=== PATIENT | female | born 1975 | race Two or more races ===

== ENCOUNTER 2020-06-09 09:41 | Outpatient (REF) | payer OTHER, SELFPAY ==
--- NOTE | 2020-06-09 09:40 | EMG_ITS ---
Right median and ulnar motor and sensory studies were performed. Right radial sensory study was performed and paraspinal muscles were tested. IMPRESSION: [id number]-[id number] right median neuropathy across carpal tunnel. MD LUIS Min/DARSHAN / [id number]
== END 2020-06-09 09:42 | disposition home or self-care (01) ==
LOC: HO.NEURO 09:41
PROVIDERS: PCP Internal Medicine; Visit Provider Internal Medicine
DX: R20.0 Anesthesia of skin (principal)
CPT/HCPCS: 95860; 95886; 95909

== ENCOUNTER → 2020-09-30 09:05 | Outpatient (BNVA) | payer OTHER, SELFPAY | PROVIDERS: PCP Internal Medicine; Visit Provider Orthopaedic Surgery | DX: M25.461 Effusion, right knee (principal) | CPT/HCPCS: 99202 ==

== ENCOUNTER 2020-10-14 07:34 | Outpatient (REF) | payer OTHER, SELFPAY ==
--- NOTE | ~2020-10-14 | MR_ITS ---
EXAMINATION: MR KNEE WITHOUT CONTRAST, RIGHT CLINICAL INFORMATION: Effusion, right knee. COMPARISON: 05/21/2017 TECHNIQUE: MRI of the knee without contrast was performed using routine sequences on a high-field scanner. FINDINGS: MENISCI: Medial Meniscus: The posterior horn is torn at its root insertion, new as compared to prior. The meniscal body is partially extruded medially from the jointline. Lateral Meniscus: Undersurface fraying is present at the posterior horn near its root insertion. LIGAMENTS: Cruciate: Intact. Collateral: Intact. EXTENSOR MECHANISM: Intact. ARTICULAR CARTILAGE/BONE: Patellofemoral Compartment: Mild generalized nonuniform chondral thinning at the patella has progressed as compared to prior. There are nhtag-yk-fsiuvffp sized marginal osteophytes. More mild chondral thinning and surface irregularity are noted at the trochlea, as well, with small marginal osteophytes that have also progressed as compared to prior. Medial Compartment: Mild nonuniform chondral thinning and surface irregularity are present at the medial femoral condyle and medial tibial plateau. Ijsmp-yd-ptwyccfc sized marginal osteophytes. Subcortical cystic change at the posterior margin of the tibial plateau near the insertion of the posterior root insertion of the medial meniscus appears unchanged from prior and may correspond to an insertional, intraosseous ganglion cyst. New areas of subcortical edema signal are present at the anterior and posterior margins of the medial tibial plateau, likely reactive to the adjacent synovitis and corresponding to early erosions. There is increased cartilage loss at the superior margin of the posterior nonweightbearing facet of the medial femoral condyle over an area measuring 9 x 8 mm. Lateral Compartment: Kdjpe-ee-mvgnqdyl sized marginal osteophytes. There is mild nonuniform chondral thinning in the lateral compartment. Cartilage loss at the superior margin of the posterior nonweightbearing surface of the lateral femoral condyle has progressed as compared to prior with increased underlying marrow edema signal and cortical erosion/irregularity. Cortical cystic focus of the posterior margin of the lateral tibial plateau has increased in size as compared to prior. JOINT FLUID AND BURSAE: Diffuse synovitis at the right knee joint has progressed as compared to prior, occupying the recesses of the medial and lateral compartments as well as the intercondylar notch and the suprapatellar pouch. There are foci of low signal intensity within the synovium which likely correspond to hemosiderin deposition, most notable in the recesses of the suprapatellar pouch. Multiple lobular cystic foci are present at the posterior, medial, and lateral aspects of the joint, likely corresponding to synovial cysts with synovitis that decompresses from the joint itself. Low signal intensity material is present in the posterior aspect of the joint near the PCL. MR/MR knee RT wo con IMPRESSION: 1. Progression of the diffuse synovitis in the knee joint with areas of low signal intensity that are most concerning for hemosiderin deposition. These findings suggest a synovial process such as chronic hemarthroses (as with hemophilic arthropathy) or a diffuse form of pigmented villonodular synovitis. Amyloid arthropathy is on the differential, though less likely. Recommend correlation with possible history of underlying inflammatory arthropathy. 2. New posterior root avulsion of the medial meniscus. Undersurface fraying at the posterior horn of the lateral meniscus. 3. Progression of the mild tricompartmental arthrosis with new subtle marginal erosive changes.
== END 2020-10-14 07:35 | disposition home or self-care (01) ==
LOC: HO.MRI 07:34
PROVIDERS: Visit Provider Orthopaedic Surgery
DX: M25.461 Effusion, right knee (principal)
CPT/HCPCS: 73721

== ENCOUNTER → 2020-10-24 12:28 | Outpatient (BNVA) | payer OTHER, SELFPAY | PROVIDERS: PCP Internal Medicine; Visit Provider Orthopaedic Surgery | DX: Z13.89 Encounter for screening for other disorder (principal) | CPT/HCPCS: 99212 ==

== ENCOUNTER → 2020-12-01 14:17 | Outpatient (BNVA) | payer OTHER, SELFPAY | PROVIDERS: PCP Internal Medicine; Visit Provider Orthopaedic Surgery | DX: M12.261 Villonodular synovitis (pigmented), right knee (principal) | CPT/HCPCS: 99212 ==

== ENCOUNTER 2021-04-17 08:14 | Outpatient (REF) | payer OTHER, SELFPAY ==
[2021-04-17 09:08] LABS: MANUAL DIFF FLAG NO
[2021-04-17 09:18] LABS: Basophils Percent Auto 0.5 % (0-2); Eosinophils Absolute Auto 0.3 X10*3/uL (0.0-0.4); Eosinophils Percent Auto 2.9 % (0-4); Hemoglobin 11.4 g/dl (12.0-16.0); Imm Gran Abs Auto 0.03 X10*3/uL (0.00-0.03); Imm Gran Pct Auto 0.3 % (0.0-0.4); Lymphocytes Absolute Auto 2.9 X10*3/uL (1.2-4.9); Lymphocytes Percent Auto 33.9 % (20-40); Mean Corpuscular HGB Conc 29.2 g/dl (31.0-35.0); Mean Corpuscular Hemoglobin 20.5 pg (27.0-33.0); Mean Corpuscular Volume 70.3 fL (80-98); Mean Platelet Volume 10.8 fL (9.4-12.3); Monocytes Absolute Auto 0.5 X10*3/uL (0.1-1.2); Monocytes Percent Auto 5.9 % (2-11); Neutrophils Absolute Auto 4.9 X10*3/uL (2.0-8.3); Neutrophils Percent Auto 56.5 % (45-73); Platelet Count 344 X10*3/uL (160-400); Red Blood Count 5.55 X10*6/uL (4.20-5.50); Red Cell Distribution Width 17.8 % (11.0-16.0); White Blood Count 8.6 X10*3/uL (4.8-10.8)
[2021-04-17 10:29] LABS: Folate 12.5 ng/mL (> or = 4.0); Vitamin B12 309 pg/mL (200-900)
[2021-04-21 13:47] LABS: Vitamin D 25-OH, D2 <4 ng/mL; Vitamin D 25-OH, D3 27 ng/mL; Vitamin D 25-OH, Total 27 ng/mL (30-100)
== END 2021-04-17 08:15 | disposition home or self-care (01) ==
LOC: HO.LAB 08:14
PROVIDERS: PCP Internal Medicine; Visit Provider Internal Medicine
DX: E55.9 Vitamin D deficiency, unspecified (principal); D64.9 Anemia, unspecified; E53.8 Deficiency of other specified B group vitamins
CPT/HCPCS: 36415; 82306; 82607; 82746; 85025

== ENCOUNTER 2021-04-28 09:20 | Outpatient (REF) | payer OTHER, SELFPAY ==
--- NOTE | ~2021-04-28 | MR_ITS ---
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 COMPARISON: MRI dated 10/14/2020. TECHNIQUE: MRI of the knee was performed before and after the intravenous administration of 7.5 mL Gadavist on a high-field scanner. FINDINGS: MENISCI: Medial meniscus: The tear of the posterior horn of the root insertion is unchanged from prior. There is partial extrusion of the meniscal body Lateral meniscus: Undersurface fraying at the posterior horn is unchanged. LIGAMENTS: Cruciate: Intact. Collateral: Intact. EXTENSOR MECHANISM: Intact. ARTICULAR CARTILAGE/BONE: Patellofemoral compartment: There is oyvq-vl-uezplixy generalized nonuniform chondral thinning at the patella, more pronounced at the medial facet and median ridge, with associated full-thickness chondral fissuring. Additional nonuniform cartilage loss is present at the trochlea. These findings are nonspecific significant change from prior. Medial compartment: There is mild nonuniform articular cartilage loss at the medial femoral condyle and medial tibial plateau. Small marginal osteophytes. As seen on the prior study, there is focal high-grade cartilage loss at the superior aspect of the posterior non-weightbearing surface of the medial femoral condyle, unchanged from prior. The enhancing intraosseous cystic focus at the posterior aspect of the tibial plateau near the PCL insertion likely corresponds to a intraosseous ganglion cyst mild subcortical marrow edema signal is again seen at the posterior and medial margin of the tibial plateau and likely reactive to the adjacent synovitis. Early erosions are also possible. Overall, this appearance is not significantly change from prior Lateral compartment: Small to moderate-sized marginal osteophytes are again noted. There is minimal chondral thinning surface irregularity at the lateral compartment weightbearing surfaces. More focal high-grade cartilage loss is present at the superior aspect of the posterior non-weightbearing surface of the lateral femoral condyle with associated central osteophyte, unchanged from prior. Subcortical cystic change at the posterior margin of the lateral tibial plateau is unchanged. JOINT FLUID AND BURSAE: Diffuse, mildly enhancing synovitis at the right knee is not appreciably changed as compared to prior, occupying the suprapatellar pouch, medial and lateral recesses, intercondylar notch, and posterior recesses of the joint. Multiple ill-defined foci of low signal intensity are present within the synovitis in addition to peripheral rims of low signal intensity, favored to correspond to hemosiderin deposition. Additional lobular cystic foci are again seen in the proximal margins of the posterior and medial recesses, potentially corresponding to superimposed synovial cysts. An 8 mm low signal intensity nodular focus in the lateral recess medially tibial plateau is similar to prior. MR/MR knee RT wo/w con IMPRESSION: 1. No significant interval change in the diffuse tenosynovitis at the knee joint with areas of low signal intensity that are most concerning for hemosiderin deposition. This appearance is appropriate for a diffuse form of pigmented villonodular synovitis, though there are minimal if any erosive changes present and the degree of hemosiderin deposition is relatively mild. Alternative synovial pathologies are possible if this has not been previously biopsy-confirmed. 2. Unchanged posterior root avulsion of the medial meniscus and undersurface fraying of the posterior horn of the lateral meniscus. 3. Mild tricompartmental arthrosis, unchanged.
[2021-04-28 12:02] LABS: Alanine Aminotransferase 13 U/L (0-31); Alkaline Phosphatase 79 U/L (39-117); Aspartate Amino Transferase 17 U/L (5-31); Bilirubin Direct 0.3 mg/dL (0.0-0.5); Bilirubin Total 0.8 mg/dL (0.0-1.0); Total Protein 6.6 g/dL (6.5-8.0)
[2021-04-28 12:28] LABS: Folate 9.1 ng/mL (> or = 4.0); Vitamin B12 229 pg/mL (200-900)
[2021-05-03 14:46] LABS: Vitamin D 25-OH, D2 <4 ng/mL; Vitamin D 25-OH, D3 23 ng/mL; Vitamin D 25-OH, Total 23 ng/mL (30-100)
== END 2021-04-28 09:21 | disposition home or self-care (01) ==
LOC: HO.MRI 09:20
PROVIDERS: Absent Provider Internal Medicine; PCP Internal Medicine; Visit Provider Orthopaedic Surgery
DX: D48.1 Neoplasm of uncertain behavior of connective and other soft tissue (principal); E55.9 Vitamin D deficiency, unspecified; E53.8 Deficiency of other specified B group vitamins; R74.01 Elevation of levels of liver transaminase levels
CPT/HCPCS: 36415; 80076; 82306; 82607; 82746

== ENCOUNTER 2021-05-02 15:56 | Outpatient (REF) | payer OTHER, SELFPAY | END 2021-05-02 15:57 | disposition home or self-care (01) | LOC: HO.MRI 15:56 | PROVIDERS: Visit Provider Orthopaedic Surgery | DX: D48.1 Neoplasm of uncertain behavior of connective and other soft tissue (principal) | CPT/HCPCS: 73723; A9585 ==

== ENCOUNTER 2021-09-25 12:25 | Outpatient (REF) | payer OTHER, SELFPAY ==
[2021-09-25 13:47] LABS: Alanine Aminotransferase 12 U/L (0-31); Albumin Level 4.1 g/dL (3.5-5.0); Alkaline Phosphatase 83 U/L (39-117); Aspartate Amino Transferase 18 U/L (5-31); Bilirubin Direct 0.2 mg/dL (0.0-0.5); Bilirubin Total 0.5 mg/dL (0.0-1.0); Total Protein 7.1 g/dL (6.5-8.0)
[2021-09-25 14:42] LABS: Folate 12.2 ng/mL (> or = 4.0); Vitamin B12 223 pg/mL (200-900)
[2021-10-01 13:56] LABS: Vitamin D 25-OH, D2 <4 ng/mL; Vitamin D 25-OH, D3 14 ng/mL; Vitamin D 25-OH, Total 14 ng/mL (30-100)
== END 2021-09-25 12:26 | disposition home or self-care (01) ==
LOC: HO.LAB 12:25
PROVIDERS: PCP Internal Medicine; Visit Provider Internal Medicine
DX: E53.8 Deficiency of other specified B group vitamins (principal); E55.9 Vitamin D deficiency, unspecified; R74.01 Elevation of levels of liver transaminase levels
CPT/HCPCS: 36415; 80076; 82306; 82607; 82746

== ENCOUNTER 2021-10-20 10:25 | Outpatient (REF) | payer OTHER, SELFPAY ==
--- NOTE | ~2021-10-20 | MR_ITS ---
EXAMINATION: MR KNEE WITHOUT AND WITH CONTRAST, RIGHT CLINICAL INFORMATION: Right knee PVNS. COMPARISON: 05/02/2021 TECHNIQUE: MRI of the knee was performed before and after the intravenous administration of 8.5 mL Gadavist on a high-field scanner. FINDINGS: MENISCI: Medial meniscus: Again seen is a tear of the posterior horn at the root insertion with blunting of the free edge. Meniscal body is partially extruded. Anterior horn is diminutive. Lateral meniscus: A vertical tear of the anterior horn is more pronounced as compared to prior and extends about the femoral and tibial surfaces. There is free edge and undersurface fraying of the posterior horn root insertion which is similar to prior. LIGAMENTS: Cruciate: ACL is intact. There is increased intrasubstance signal in the PCL which may be due to mild mucoid degeneration. No appreciable tears. Collateral: The fibular collateral ligament is thickened and irregular proximally, potentially due to a ligament sprain. No discrete tears. The popliteus tendon is torn 1.5 cm from the origin with distal retraction of the muscle. EXTENSOR MECHANISM AND OTHER TENDONS/MUSCLES: There is thickening of the quadriceps and patellar tendons which may be due in part to prior surgery. Superimposed tendinosis is present at the patellar tendon. The lateral head of the gastrocnemius is completely torn at the femoral origin with distal retraction by 4.5 cm. The medial head of the gastrocnemius muscle is thickened and irregular proximally at its origin with associated edema signal, consistent with tendinosis and partial tearing. Punctate foci of susceptibility artifact are present in this region in addition to linear tracts of scar tissue extending to the skin surface, consistent with postsurgical changes. There is significant atrophy, edema signal, and fatty replacement of the lateral head of the gastrocnemius muscle proximally. ARTICULAR CARTILAGE/BONE: Patellofemoral compartment: Tfnh-yz-satzqyaj generalized non-uniform chondral thinning is again seen at the patella, more pronounced in the region of the medial facet. There is more mild non-uniform chondral thinning in the trochlea. Small marginal osteophytes. There is a thickened fold of scar tissue in the lateral aspect of the patellofemoral compartment. Medial compartment: There is pdpo-[id number] non-uniform chondral thinning at the weightbearing surfaces of the medial femoral condyle and medial tibial plateau with moderate size marginal osteophytes. Subchondral edema is present at the medial tibial plateau posteriorly. There is a 1 x 0.5 cm non-marginal osteophyte at the posterior non-weightbearing surface of the lateral femoral condyle superiorly. There is an unchanged 1.2 cm cystic focus within the posterior aspect of the tibial plateau deep to the insertion of the PCL, likely an intraosseous ganglion cyst. An erosion is possible. Lateral compartment: Small to moderate-sized marginal osteophytes. Moderate articular cartilage loss is present at the anterior weightbearing surface of the lateral femoral condyle with known marginal osteophytes over an area measuring 1 x 1.5 cm. Underlying marrow signal is edematous. Chondral fissuring and subcortical edema are present at the lateral tibial plateau anteriorly. There is mild non-uniform chondral thinning and surface irregularity at the remainder of the lateral tibial plateau and epicondyle. Subcortical cystic change is again seen at the posterior margin of the lateral tibial plateau. Articular cartilage loss is again noted at the posterior non-weightbearing surface of the femoral condyle with central osteophytes. JOINT FLUID AND BURSAE: Small to moderate-sized joint effusion. The diffuse synovitis within the joints is markedly improved as compared to prior, most consistent with postsurgical changes of cystectomy. Residual or recurrent foci of synovitis are present in the anterior recess of the medial compartment, the lateral recesses of the lateral compartment, and within a synovial cyst just superficial to the MCL. This medial synovial cyst is filled with heterogeneous synovitis and measures 3.4 x 1 x 4.0 cm (AP by transverse by craniocaudal). MR/MR knee RT wo/w con IMPRESSION: 1. Status post synovectomy with significant reduction in the burden of PVNS at the knee joint. Residual/recurrent foci of PVNS are most notable in the anterior recesses and lateral recess of the lateral compartment and within a synovial cyst just superficial to the MCL. 2. Completely tear and retraction of the lateral head of the gastrocnemius muscle with associated muscle atrophy and edema. Medial head is partially torn at its origin. 3. Complete tear and distal retraction of the popliteus tendon. 4. Posterior root tear of the medial meniscus. 5. New vertical tear at the anterior horn of the lateral meniscus. 6. Postsurgical changes at the quadriceps and patellar tendons with associated tendinosis. 7. Mild tricompartmental osteoarthritis.
== END 2021-10-20 10:26 | disposition home or self-care (01) ==
LOC: HO.MRI 10:25
PROVIDERS: Visit Provider Orthopaedic Surgery
DX: M12.20 Villonodular synovitis (pigmented), unspecified site (principal)
CPT/HCPCS: 73723; A9585

== ENCOUNTER 2022-06-01 16:45 | Outpatient (REF) | payer OTHER, SELFPAY ==
--- NOTE | ~2022-06-01 | MR_ITS ---
EXAMINATION: MR KNEE WITHOUT AND WITH CONTRAST, RIGHT CLINICAL INFORMATION: Pigmented villonodular synovitis. Patient reports prior surgery 05/2021, 07/2021. COMPARISON: MRI 10/20/2021. TECHNIQUE: MRI of the knee was performed before and after the intravenous administration of 8.5 mL Gadavist on a high-field scanner. FINDINGS: MENISCI: MEDIAL MENISCUS: Redemonstrated is irregular tear of the posterior root/central posterior horn. Partial extrusion of the body. Anterior horn is diminutive. LATERAL MENISCUS: Complex tear of the anterior horn, thin caliber, vertical tear, undersurface tear, worsened from previous. Free edge and undersurface fraying in the posterior root/central posterior horn, similar to previous. LIGAMENTS: CRUCIATE: Increased signal in the ACL and PCL suggesting mild mucoid degeneration. No tear. COLLATERAL: MCL is intact. Redemonstrated is possible chronic sprain of the proximal aspect of the fibular collateral ligament. Biceps femoris, iliotibial band are intact. Redemonstrated is tear of the popliteus tendon retraction, with the retracted margin difficult to visualize. EXTENSOR MECHANISM AND ADDITIONAL MUSCLE/TENDONS: Quadriceps tendon is intact. Thickening of the patellar tendon, could be related to tendinosis and/or post-surgical changes. This appears slightly less prominent as compared to previous. Redemonstrated is tearing of the proximal lateral gastrocnemius tendon, with distal retraction. Redemonstrated is lateral gastrocnemius muscle atrophy, with muscle edema slightly improved from previous. Medial gastrocnemius tendinosis/partial tearing, appears slightly improved as compared to previous. ARTICULAR CARTILAGE/BONE: PATELLOFEMORAL COMPARTMENT: Areas of nonuniform xmze-io-lbehjgey cartilage thinning in the patella, and foci of mild cartilage thinning in the trochlea, similar to previous. Redemonstrated is a band of scar tissue in the lateral aspect of the patellofemoral compartment. MEDIAL COMPARTMENT: Marginal osteophytes, joint space loss, nonuniform cartilage thinning and irregularity, relatively similar to previous. There are cystic foci underlying the tibial spines. LATERAL COMPARTMENT: Marginal osteophytes. Areas of cartilage thinning including the weightbearing and anterior aspect of the femur, the posterior aspect of the tibia, relatively similar to previous. JOINT FLUID AND BURSAE: Small joint effusion. There is synovitis in the joint, demonstrating enhancement in the postcontrast sequences. This includes synovitis in the anterior recess of the medial compartment, the lateral and anterolateral recess of the lateral compartment, and in the posterior intercondylar region; there is prominent heterogeneous synovitis filling the synovial cyst superficial to the MCL. This measures 4.5 x 1.7 x 4.2 cm, (AP, transverse, craniocaudal) increased from the prior measurement of 3.1 x 1 x 4 cm. MR/MR knee RT wo/w con IMPRESSION: 1. Patient is status post synovectomy. There is slight interval increase in the burden of PVNS in the joint. In particular, this is increased in the anterolateral recess of the lateral compartment, and within the synovial cyst overlying the MCL. 2. Redemonstrated tear of the posterior root/central posterior horn of the medial meniscus. 3. Tear of the anterior horn lateral meniscus, worsened from previous. Persistent tear of the posterior root/central posterior horn. 4. Myxoid degeneration ACL and PCL. 5. Redemonstrated is a complete tear of the lateral gastrocnemius tendon with retraction. Interval improvement in the muscle edema. Persistent atrophy. 6. Redemonstrated is a complete tear of the popliteus tendon. 7. Improved proximal medial gastrocnemius tendinosis/partial tear. 8. Tricompartment osteoarthritis, relatively similar to previous. 9. Small joint effusion. 10. Additional findings and details as above.
== END 2022-06-01 16:46 | disposition home or self-care (01) ==
LOC: HO.MRI 16:45
PROVIDERS: Visit Provider Orthopaedic Surgery
DX: M12.20 Villonodular synovitis (pigmented), unspecified site (principal)
CPT/HCPCS: 73723; A9585

== ENCOUNTER → 2022-12-24 14:09 | Outpatient (BNVA) | payer OTHER, SELFPAY | PROVIDERS: PCP Internal Medicine; Visit Provider Orthopaedic Surgery | DX: M25.561 Pain in right knee (principal) | CPT/HCPCS: 99212 ==

== ENCOUNTER 2023-05-26 11:10 | Emergency (ER) | payer OTHER, SELFPAY ==
[2023-05-26 11:15] VITALS: BP 131/77; PULSE 100; RESP 18; TEMP 36.6; O2SAT 98; BMI 34.3
--- NOTE | 2023-05-26 11:17 | ED.GENADULT ---
HPI - General Adult General Chief complaint: Chest Pain Stated complaint: L arm pain/Chest pain Time Seen by Provider: 05/26/23 12:06 Source: patient Mode of arrival: ambulatory Limitations: no limitations History of Present Illness HPI narrative: Patient is a 40-year-old female who presents emergency department for evaluation of pain. She endorses 2 weeks with constant left lateral neck pain with variable intensity radiating across the left upper shoulder down the left arm and into the left upper chest. She denies any precipitating injury. Denies any alleviating factors. She has trialed Tylenol without improvement. Pain is made worse with movement of the head/neck. She denies headache, fevers, chills, difficulty swallowing, vision changes, dizziness, lightheadedness, cough, shortness of breath, numbness or tingling the extremities, nausea/vomiting/abdominal pain. Denies history of similar pain in the past. Related Data Previous Rx's Medication Instructions Recorded cyclobenzaprine 10 mg tablet 10 mg PO TID PRN muscle spasm #20 05/26/23 tabs naproxen 500 mg tablet 500 mg PO BID PRN pain #20 tabs 05/26/23 Allergies Allergy/AdvReac Type Severity Reaction Status Date / Time pexidartinib [From Turalio] AdvReac Intermediate transaminit Verified 12/13/22 13:06 is Review of Systems Review of Systems: Yes all other systems are reviewed and are negative PMFSH Past Medical History Attestation statement: The following information was validated with the patient. Source: old records reviewed Medical History Class 1 obesity with body mass index (BMI) of 31.0 to 31.9 in adult Transaminitis Pigmented villonodular synovitis Hypovitaminosis D B12 deficiency Knee effusion, right Right knee pain Surgical History History of knee surgery H/O knee surgery History of tubal ligation Family History Family History Father ALS (amyotrophic lateral sclerosis) Prostate cancer Diabetes Hypertension Mother Diabetes Arthritis Hypertension Maternal Grandmother Arthritis Diabetes Hypertension Daughter of unknown cause Social History Social History Housing: Apartment Alcohol intake: current Alcohol intake frequency: holidays/special occasions only Alcohol type: wine Patient Tobacco Use Status: Never used Tobacco Smoked in Last 30 Days: No e-Cigarette/Vaping Use: Never Used Second Hand Smoke Exposure: No Use of substances other than those prescribed or required for medical reasons: No Advance Directives: No Advance Directives Information Provided: Yes service: No Current occupational status: employed 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 No acute distress.?Normal affect. Eyes: Pupils equal, round and reactive to light.? ENT: Pharynx normal.?? Neck: Normal inspection.? Neck supple.??No cervical lymphadenopathy. Tenderness upon palpation of the left paraspinal/SCM/trapezius muscle exacerbated with lateral rotation of the head. CVS: Heart sounds normal. Normal heart rate and rhythm.? Pulses normal.?? Respiratory: No respiratory distress.? Lung sounds clear to auscultation bilaterally?? Abdomen: Soft and non-tender. Normoactive bowel sounds. ? Skin: Skin warm and dry.? Normal skin color.?? Extremities: No lower extremity edema Neuro: Moves all extremities spontaneously. Sensation intact bilaterally. CN II-XII intact. No focal neuro deficits. Ambulates with normal steady gait. Course Course Course Narrative: RME: 48 yold female presents to the ED for two weeks of left sided neck pain radiating towards left shoulder and chest. EKG and labs and chest xray ordered Reevaluation(s) Reevaluation #1: XR revealing mild ventral spondylosis of C5-C6 and C6-C7 without evidence of acute fracture or subluxation. Symptoms most consistent with cervical radiculopathy Reviewed these findings with patient. Advised outpatient follow-up with primary care provider, sent prescription for cyclobenzaprine and naproxen to patient's pharmacy. Reviewed worrisome signs and symptoms that would warrant re-evaluation in the emergency department. All questions answered. Stable for discharge. Time: 15:16 Medications Administered Discontinued Medications Generic Name Dose Route Start Last Admin Trade Name Jesus PRN Reason Stop Dose Admin Cyclobenzaprine HCl 10 mg 05/26/23 13:00 05/26/23 13:13 Cyclobenzaprine Hcl 10 Mg Tablet PO 05/26/23 13:01 10 mg ONCE ONE Administration Ketorolac Tromethamine 30 mg 05/26/23 13:00 05/26/23 13:13 Ketorolac Tromethamine 30 Mg/Ml Vial IM 05/26/23 13:01 30 mg ONCE ONE Administration Medical Decision Making Medical Decision Making [facility] Narrative: Patient is a 40-year-old female who presents emergency department for evaluation of left lateral neck pain radiating into the left shoulder and down the left arm. Atraumatic in nature. Constant for the past 2 weeks. History and physical examination seems atypical for ACS, however obtained EKG and troponin to exclude ischemia, high sensitive troponin below detectable limits in given duration of symptoms no indication for repeat testing; EKG revealing normal sinus rhythm with ventricular rate of 89, normal IA interval, QTC 472, no ST elevation/ST depression/T-wave inversion. Upon physical examination suspect this is most likely musculoskeletal, will obtain XR of the cervical spine to exclude abnormality and trial Toradol and cyclobenzaprine for pain management at this time. Although cannot completely exclude disc herniation, no indication for emergent CT/MRI. Midline cervical spine tenderness, step-offs, deformities, low suspicion for spinal abscess, fracture, subluxation, cervical dissection, there is no meningismus. Reviewed labs obtained from initial triage, no evidence of leukocytosis, baseline microcytic anemia and not needing transfusion criteria, overall unremarkable CMP. Differential Diagnosis Differential Diagnoses: The differential diagnosis associated with the presentation includes (As noted above) Lab Data [facility] Lab Attestation statement: I reviewed the patient's lab results. (As noted above) 05/26/23 11:32 05/26/23 11:32 Labs: Lab Results 05/26/23 Range/Units 11:32 WBC 8.7 (4.8-10.8) X10*3/uL RBC 5.87 H (4.20-5.50) X10*6/uL Hgb 11.6 L (12.0-16.0) g/dl Hct 41.1 (37.0-47.0) % MCV 70.0 L (80.0-98.0) fL MCH 19.8 L (27.0-33.0) pg MCHC 28.2 L (31.0-35.0) g/dl RDW 15.2 (11.0-16.0) % Plt Count 286 (160-400) X10*3/uL MPV 10.8 (9.4-12.3) fL Immature Gran % (Auto) 0.3 (0.0-0.4) % Neut % (Auto) 60.6 (45-73) % Lymph % (Auto) 34.4 (20-40) % Barber % (Auto) 3.6 (2-11) % Eos % (Auto) 0.6 (0-4) % Baso % (Auto) 0.5 (0-2) % Lymph # (Auto) 3.0 (1.2-4.9) X10*3/uL Barber # (Auto) 0.3 (0.1-1.2) X10*3/uL Eos # (Auto) 0.1 (0.0-0.4) X10*3/uL Baso # (Auto) 0.0 (0.0-0.2) X10*3/uL Abs Immat Gran (auto) 0.03 (0.00-0.03) X10*3/uL Absolute Neuts (auto) 5.3 (2.0-8.3) x10*3/uL Absolute Nucleated RBC 0.000 (0.0-0.012) X10*3/uL Nucleated RBC % (auto) 0.0 (0.0-0.2) /100WBC PT 11.2 (11.1-13.3) SEC INR 0.9 (0.9-1.1) APTT 30.2 (26.0-36.4) SEC Sodium 137 (135-145) mmol/L Potassium 3.9 (3.3-5.1) mmol/L Chloride 108 (96-108) mmol/L Carbon Dioxide 17 L (22-29) mmol/L Anion Gap 16 (12-20) BUN 4 L (9-16) mg/dL Creatinine 0.70 (0.5-1.4) mg/dL Estim Creat Clear Calc 103.2 Estimated GFR > 60 Random Glucose 194 H (60-115) mg/dL Calcium 8.9 (8.4-10.2) mg/dL Total Bilirubin 0.5 (0.0-1.0) mg/dL AST 18 (5-31) U/L ALT 13 (0-31) U/L Alkaline Phosphatase 80 (39-117) U/L Troponin I High Sens < 2.7 (<3.5-17.0) ng/L Total Protein 6.4 L (6.5-8.0) g/dL Albumin 3.6 (3.5-5.0) g/dL Independent Interpretation I performed an independent interpretation of an: EKG (As noted above) and Plain X-Ray (I personally interpreted x-ray and agree with radiologist impression.) Radiology Impression Discussion of test interpretation with radiology: I have reviewed the radiologist's reading. Radiologist Impression: XR/XR chest 1V IMPRESSION: Unremarkable chest examination. XR/XR cervical spine 3V IMPRESSION: Mild ventral spondylosis C5-C6 and C6-C7 disc levels. No visible acute fracture, dislocation or subluxation seen. External Record Review External record reviewed: Outpatient record Prescription Management I considered prescription management with: Pain Medication Discharge Plan Discharge Clinical Impression: Cervical radiculopathy, Cervical spondylosis Patient Disposition: Home, Self-Care Instructions: Cervical Radiculopathy (ED), Neck Pain (ED) Prescriptions: New cyclobenzaprine 10 mg tablet 10 mg PO TID PRN (Reason: muscle spasm) Qty: 20 0RF naproxen 500 mg tablet 500 mg PO BID PRN (Reason: pain) Qty: 20 0RF Referrals: Phyllis Cintron MD [Primary Care Provider] - Interventions: ED Discharge Assessment Last Done: 05/26/23 15:41 Discharge Date/Time: 05/26/23 15:43
[2023-05-26 12:06] VITALS: BP 114/61; PULSE 78; RESP 18; TEMP 36.7; O2SAT 98
--- NOTE | 2023-05-26 13:04 | PC.NURSE ---
pt is alert and oriented, skin appropriate for ethnicity, respirations even and unlabored, pt reports medial/left sided chest pain that radiated to the left sided of neck and left arm/elbow for the last 2 weeks that is constant- worse with movement and especially moving the neck to the right side. currently only experiencing left elbow pain, denies chest pain. ns on the monitor
[2023-05-26 14:13] VITALS: BP 131/73; PULSE 70; RESP 17; TEMP 36.7; O2SAT 98
--- NOTE | 2023-05-26 14:19 | PC.NURSE ---
pt reports not much improvement after the medication pain at 910
== END 2023-05-26 15:43 | disposition home or self-care (01) ==
PROVIDERS: Emergency Provider Emergency Medicine; PCP Internal Medicine
DX: M54.12 Radiculopathy, cervical region (principal); M47.892 Other spondylosis, cervical region; R07.89 Other chest pain; Z79.899 Other long term (current) drug therapy
CPT/HCPCS: 36415; 71045; 72040; 80053; 84484; 85025; 85610; 85730; 93005; 96372; 99284; 99285; J1885

== ENCOUNTER 2023-06-25 17:00 | Outpatient (AMB) | payer OTHER, SELFPAY ==
--- NOTE | 2023-06-25 17:03 | MHC.PC.OV ---
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 Accompanied by: Self / Same As Patient Allergies pexidartinib [From [facility]] Adverse Reaction (Intermediate, Verified 06/25/23 17:14) transaminitis Medication List - Last Reconciled 06/25/23 by Phyllis Cason MD imatinib 400 mg PO DAILY ondansetron HCl 8 mg PO TID Tobacco use date assessed: 12/13/22 Dental Screening Dental Screen Date: 06/25/23 Did you have a dental visit in the last 12 months?: Yes Did you have a dental problem in the last 6 months where you did not have access to dental care?: No Was dental information given to patient?: Patient has dentist HPI HPI Comments History of Present Illness Details This is a 48-year-old female that comes for her physical exam. Last mammogram was over a year ago. Had a Pap smear scheduled for next month. Has never had a colonoscopy and has family history of colon cancer in first-degree. Denies any chest pain or shortness of breath. [facility] Medical History Class 1 obesity with body mass index (BMI) of 31.0 to 31.9 in adult Transaminitis Pigmented villonodular synovitis Hypovitaminosis D B12 deficiency Knee effusion, right Right knee pain Surgical History History of knee surgery H/O knee surgery History of tubal ligation Family History Father ALS (amyotrophic lateral sclerosis) Prostate cancer Diabetes Hypertension Mother Diabetes Arthritis Hypertension Maternal Grandmother Arthritis Diabetes Hypertension Daughter of unknown cause Social History Housing: Apartment Alcohol intake: current Alcohol intake frequency: holidays/special occasions only Alcohol type: wine Patient Tobacco Use Status: Never used Tobacco e-Cigarette/Vaping Use: Never Used Second Hand Smoke Exposure: No service: No Current occupational status: employed 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 Nathen Lange, Suni Golden, Stas Hicks and colleagues, with an educational chapo from [employer]. Review of Systems Const All systems reviewed & are unremarkable except as noted in HPI and below Eyes Reports no additional complaints, Denies change in vision and Denies other visual disturbances Card Denies chest pain at rest, Denies chest pain with activity, Denies edema, Denies irregular heart rhythm, Denies claudication, Denies dyspnea, Denies dyspnea on exertion, Denies orthopnea, Denies paroxysmal nocturnal dyspnea and Denies slow heart rate Resp Denies cough, Denies dyspnea and Denies dyspnea on exertion GI Denies abdominal pain, Denies change in bowel habits, Denies excessive flatus, Denies nausea and Denies vomiting Denies urinary incontinence, Denies urinary hesitancy and Denies urinary urgency Musc Denies abnormal gait, Denies atrophy, Denies deformity and Denies limited range of motion Skin/Breast Denies bleeding lesions, Denies changing lesions and Denies rash Neuro Denies abnormal gait and Denies lack of coordination Physical exam (Primary Care) Vital Signs: Last Vital Signs BP 132/76 06/25/23 17:04 BMI result Body Mass Index 34.0 Tobacco/Smoking Status: Tobacco use Status Tobacco use date assessed 12/13/22 06/25/23 17:06 Patient Tobacco Use Status Never used Tobacco 06/25/23 17:06 e-Cigarette/Vaping Use Never Used 06/25/23 17:06 Thrive Assessment: Date of Thrive Assessment Date Thrive assessed 12/13/22 06/25/23 17:06 Const Orientation/consciousness: patient oriented x3 HENMT Head: Yes normal to inspection, Yes normocephalic and Yes atraumatic Ears: external ears normal Eyes General: appearance normal, both eyes and all related structures Eyelids: Yes eyelids normal Conjunctivae: conjunctivae normal Neck Neck: Yes normal visual inspection and Yes supple Resp Effort & Inspection: normal respiratory effort Auscultation: clear to auscultation bilaterally Cardio Jugular venous distension: no JVD Rate: regular rate Rhythm: regular rhythm Heart sounds: S1 normal heart sound present and S2 normal heart sound present GI Inspection: Yes normal to inspection Palpation (GI): Soft to palpation and nontender Auscultation: normal bowel sounds Skin General skin exam: no rashes or lesions noted Neuro General: patient oriented x3 and no focal motor deficits Extrem General: Yes full ROM Psych Appearance: grossly normal Office Procedures Flu Questionnaire Does the patient have a severe egg allergy?: No Immunizations flu vacc [id number] 6mos up(PF) 60 mcg(15 mcgx4)/0.5 mL IM syringe Performing Provider: Phyllis Cason MD [facility] Documented (not given) by: JCARLOS Aponte on 06/25/23 17:08 Reason Not Given: Patient Refused Assessment and Plan Assessment & Plan (1) Physical exam: Code(s): Z00.00 - Encounter for general adult medical examination without abnormal findings Plan: Repeat in a year Orders: Orders Influenza [id number] Immunization Today Z23 - Encounter for immunization MM screening mammo BI Today Z12.31 - Encounter for screening mammogram for malignant neoplasm of breast T Spot TB Today Z11.1 - Encounter for screening for respiratory tuberculosis Referrals Open Access Screening Colonoscopy Referral Z12.11 - Encounter for screening for malignant neoplasm of colon Coding Level of Care Code Est Pt Prev Care 40-64y([id number]) Diagnoses Physical exam Z00.00 Time Spent (min) 31
[2023-06-25 17:04] VITALS: BP 132/76; BMI 34.0
== END 2023-06-25 17:25 | disposition home or self-care (01) ==
PROVIDERS: Visit Provider Internal Medicine
DX: Z00.00 Encounter for general adult medical examination without abnormal findings (principal)
CPT/HCPCS: 99396

== ENCOUNTER 2023-07-02 15:56 | Outpatient (REF) | payer OTHER, SELFPAY ==
[2023-07-05 08:53] LABS: TS Negative Control Passed; TS Panel A 0; TS Panel B 0; TS Positive Control Passed; TSpotTB Negative (Negative)
== END 2023-07-02 15:57 | disposition home or self-care (01) ==
LOC: HO.LAB 15:56
PROVIDERS: PCP Internal Medicine; Visit Provider Internal Medicine
DX: Z11.1 Encounter for screening for respiratory tuberculosis (principal)
CPT/HCPCS: 36415; 86481

== ENCOUNTER 2023-08-30 13:27 | Outpatient (REF) | payer OTHER, SELFPAY ==
--- NOTE | ~2023-08-30 | MM_ITS ---
EXAMINATION: MM DIAGNOSTIC DIGITAL BREAST TOMOSYNTHESIS, BILATERAL US BREAST LIMITED, BILATERAL MAMMOGRAPHY: CLINICAL INFORMATION: 40-year-old female complaining of bilateral axillary pain and palpable foci. COMPARISON: Mammography: 04/03/2019, 12/05/2017, 11/24/2016, and dating back to 2014. TECHNIQUE: Digital breast tomosynthesis is performed in both the craniocaudal and mediolateral oblique views along with computer-aided detection (CAD). Synthesized 2D images are generated from the tomosynthesis. In addition, bilateral full-field 3-D axillary tail views were also performed. FINDINGS: The breasts are heterogeneously dense, which may obscure small masses (ACR BI-RADS breast composition Category c). There are prominent axillary fat pads right greater than left. No underlying masses or adenopathy on mammography. There are no suspicious masses, suspicious grouped calcifications, or areas of architectural distortion in either breast. The parenchymal pattern is stable from prior exams. ULTRASOUND: CLINICAL INFORMATION: 40-year-old female complaining of bilateral axillary pain and palpable foci. COMPARISON: None TECHNIQUE: Targeted sonographic evaluation of both axilla was performed using a high frequency linear transducer. Selected archived documentation. FINDINGS: RIGHT AXILLA: There is very prominent fatty tissue. No suspicious mass or cystic abnormality. No abnormal lymph nodes. No abnormal fluid collection. LEFT AXILLA: There is prominent fatty tissue. No suspicious mass or cystic abnormality. No abnormal lymph nodes. No abnormal fluid collection. MM/MM tomosynthesis diagnostic BI IMPRESSION: There are no findings suspicious for malignancy in either breast or axilla. There are prominent axillary fat pads right greater than left without evidence of underlying mass or adenopathy. Recommend clinical management. OVERALL ASSESSMENT: Mammography: BI-RADS 2 - Benign Findings Ultrasound: BI-RADS 2 - Benign Findings RECOMMENDATION: 1. Patient should be managed based on the clinical impression. 2. Otherwise, routine annual screening mammography. Results were provided to the patient at time of visit by the technologist. This patient's information was entered into a reminder system with a target due date for their next mammogram.
== END 2023-08-30 13:28 | disposition home or self-care (01) ==
LOC: HO.MAMMO 13:27
PROVIDERS: PCP Internal Medicine; Visit Provider Nurse Practitioner Family
DX: N64.89 Other specified disorders of breast (principal); M79.622 Pain in left upper arm; M79.621 Pain in right upper arm
CPT/HCPCS: 76642; 77062; 77066

== ENCOUNTER → 2023-08-30 14:00 | Outpatient (BNV) | payer OTHER, SELFPAY | PROVIDERS: PCP Internal Medicine; Visit Provider Radiology Diagnostic Radiology | DX: N64.4 Mastodynia (principal) | CPT/HCPCS: 76642; 77062; 77066 ==

== ENCOUNTER 2023-10-10 15:35 | Outpatient (AMB) | payer OTHER, SELFPAY ==
--- NOTE | 2023-10-10 16:15 | AM.OFFVISNUR ---
Intake Intake Visit Reasons: b12 Allergies pexidartinib [From Turalio] Adverse Reaction (Intermediate, Verified 06/25/23 17:14) transaminitis Coding Assessment & Plan Assessment & Plan Orders: Orders AMB Vitamin B12 Injection Patient Supplied Today E53.8 - Deficiency of other specified B group vitamins Medications: New cyanocobalamin (vitamin B-12) 1,000 mcg IM ONCE 1 mL 0RF E53.8 - Deficiency of other specified B group vitamins
--- NOTE | 2023-10-10 16:22 | AM.OFFVISNUR ---
Intake Intake Visit Reasons: b12 Allergies pexidartinib [From [facility]] Adverse Reaction (Intermediate, Verified 06/25/23 17:14) transaminitis Office Meds cyanocobalamin (vitamin B-12) 1,000 mcg/mL injection solution Performing Provider: Phyllis Cason MD Performing Location: [facility] Administered by: Meena Agudelo RN on 10/10/23 16:26 Dose Route Admin Location Dispensed Lot Number Expiration Date [place] Volunteer Assistant 1,000 mcg IM 1 mL [id number] 04/17/25 50110-144-78 [facility] [employer] Coding Assessment & Plan Assessment & Plan Orders: Orders AMB Vitamin B12 Injection Patient Supplied Today E53.8 - Deficiency of other specified B group vitamins
== END 2023-10-10 16:22 | disposition home or self-care (01) ==
PROVIDERS: PCP Internal Medicine; Visit Provider Internal Medicine
DX: E53.8 Deficiency of other specified B group vitamins (principal)
CPT/HCPCS: 96372; J3420

== ENCOUNTER 2023-11-07 09:09 | Outpatient (AMB) | payer OTHER, SELFPAY ==
--- NOTE | 2023-11-07 09:16 | AM.OFFVISNUR ---
Intake Intake Visit Reasons: vitamin B12 injections Allergies pexidartinib [From Turalio] Adverse Reaction (Intermediate, Verified 06/25/23 17:14) transaminitis Office Meds cyanocobalamin (vitamin B-12) 1,000 mcg/mL injection solution Performing Provider: Phyllis Cason MD Performing Location: [facility] Administered by: Meena Agudelo RN on 11/07/23 09:16 Dose Route Admin Location Dispensed Lot Number Expiration Date [facility] Can Cutter 1,000 mcg IM 1 mL [id number] 04/17/25 73496-571-66 [facility] [employer] Coding Assessment & Plan Assessment & Plan Orders: Orders AMB Vitamin B12 Injection Patient Supplied Today E53.8 - Deficiency of other specified B group vitamins
== END 2023-11-07 09:25 | disposition home or self-care (01) ==
PROVIDERS: PCP Internal Medicine; Visit Provider Internal Medicine
DX: E53.8 Deficiency of other specified B group vitamins (principal)
CPT/HCPCS: 96372; J3420

== ENCOUNTER 2023-12-09 15:52 | Outpatient (AMB) | payer OTHER, SELFPAY ==
--- NOTE | 2023-12-09 16:09 | AM.OFFVISNUR ---
Intake Intake Visit Reasons: B12 shot Allergies pexidartinib [From [facility]ural[facility]] Adverse Reaction (Intermediate, Verified 06/25/23 17:14) transaminitis Office Meds cyanocobalamin (vitamin B-12) 1,000 mcg/mL injection solution Performing Provider: Phyllis Cason MD [facility] Administered by: Estiven Wolf RN on 12/09/23 16:05 Dose Route Admin Location Dispensed Lot Number Expiration Date [place] Photo Mask Pattern Generator 1,000 mcg IM left deltoid 1 mL [id number] 03/19/25 40004-649-70 [employer] Comments: consented for b12 injection and tolerated well. Coding Assessment & Plan Assessment & Plan Orders: Orders AMB Vitamin B12 Injection Patient Supplied Today E53.8 - Deficiency of other specified B group vitamins Medications: New cyanocobalamin (vitamin B-12) 1,000 mcg IM ONCE 1 mL 0RF E53.8 - Deficiency of other specified B group vitamins
== END 2023-12-09 16:11 | disposition home or self-care (01) ==
PROVIDERS: PCP Internal Medicine; Visit Provider Internal Medicine
DX: E53.8 Deficiency of other specified B group vitamins (principal)
CPT/HCPCS: 96372; J3420

== ENCOUNTER 2024-01-02 03:37 | Emergency (ER) | payer OTHER, SELFPAY ==
[2024-01-02 03:42] VITALS: BP 136/70; PULSE 98; RESP 16; TEMP 37.4; O2SAT 97; BMI 34.8
[2024-01-02 04:04] LABS: IDNOW Serial# 08D9AD1C; Strep A Nucleic Acid Negative (Negative)
[2024-01-02 04:34] LABS: Influenza A PCR NEGATIVE (Negative); Influenza B PCR NEGATIVE (Negative); Resp Syncy Virus RNA Qual PCR NEGATIVE (Negative); SARS COV2 PCR INHOUSE POSITIVE (Negative)
--- NOTE | 2024-01-02 05:22 | ED.GENADULT ---
HPI - General Adult General Chief complaint: General Medical Stated complaint: not feeling well Time Seen by Provider: 01/02/24 05:13 Source: patient and family Mode of arrival: ambulatory Limitations: no limitations History of Present Illness HPI narrative: Patient comes to the emergency room complaining of 2 days of sore throat, sinus pain, headache. Patient states that she is returned from a cruise from [place]. Patient denies nausea vomiting or diarrhea. No neck pain, no neck stiffness. No shortness of breath or chest pain. Related Data Home Medications ?Medication ?Instructions ?Recorded ?Confirmed imatinib 400 mg tablet 400 mg PO DAILY 06/25/23 06/25/23 ondansetron HCl 8 mg tablet 8 mg PO TID 06/25/23 06/25/23 Previous Rx's ?Medication ?Instructions ?Recorded bisacodyl 5 mg tablet,delayed 20 mg (4 x 5 mg) PO ONCE 1 day #4 08/16/23 release (Dulcolax (bisacodyl)) tabs polyethylene glycol 3350 17 238 g PO ONCE 1 day #238 grams 08/16/23 gram/dose oral powder (Miralax) cyanocobalamin (vitamin B-12) 1,000 mcg IM Q4W 30 days #2 mL 10/09/23 1,000 mcg/mL injection solution insulin syringe-needle U-100 1 mL #1 ea 10/09/23 30 gauge x 1/2 (BD Eclipse Luer-Kiara) ibuprofen 600 mg tablet 600 mg PO Q8H PRN fever or pain 01/02/24 #14 tabs Allergies Allergy/AdvReac Type Severity Reaction Status Date / Time pexidartinib [From [facility]] AdvReac Intermediate transaminit Verified 01/02/24 03:43 is Review of Systems Review of Systems: Constitutional : No Weight loss, No Fever, No Chills, No Night Sweats, No Fatigue, No Malaise ENT/Mouth : No Hearing loss, No Ear Pain, complaining of Nasal Congestion, No Sinus Pain, No Hoarseness, complaining of sore throat, No Rhinorrhea, No Swallowing Difficulty Eyes: No Eye Pain, No Swelling, No Redness, No Foreign Body, No Discharge, No Vision Changes Cardiovascular : No Chest Pain, No SOB, No Dyspnea on Exertion, No Orthopnea, No Edema, No Palpitations Respiratory : No Cough, No Sputum, No Wheezing, No Smoke Exposure, No Dyspnea Gastrointestinal : No Nausea, No Vomiting, No Diarrhea, No Constipation, No abdominal Pain, No Hematochezia, No Melena Genitourinary : no irregular bleeding, No Dysuria, No Urinary Frequency, No Hematuria, No Urinary Incontinence, No Urgency, No Flank Pain, No Urinary Flow Changes, No Hesitancy Musculoskeletal : No joint pain, No Myalgias, No Joint Swelling Skin : No Skin Lesions, No rash Neuro : No Weakness, No Numbness, No Paresthesias, No Loss of Consciousness, No Dizziness, No Headache Psych : No Anxiety/Panic, No Depression, No SI/HI/AH/VH, No Social Issues, Heme/Lymph: No Bruising, No Bleeding,No Lymphadenopathy Endocrine : No Polyuria, No Polydipsia, No Temperature Intolerance [facility] Past Medical History Medical History Class 1 obesity with body mass index (BMI) of 31.0 to 31.9 in adult Transaminitis Pigmented villonodular synovitis Hypovitaminosis D B12 deficiency Knee effusion, right Right knee pain Surgical History History of knee surgery H/O knee surgery History of tubal ligation Family History Family History Father ALS (amyotrophic lateral sclerosis) Prostate cancer Diabetes Hypertension Mother Diabetes Arthritis Hypertension Maternal Grandmother Arthritis Diabetes Hypertension Daughter of unknown cause Social History Social History Housing: Apartment Alcohol intake: current Alcohol intake frequency: holidays/special occasions only Alcohol type: wine Patient Tobacco Use Status: Never used Tobacco e-Cigarette/Vaping Use: Never Used Second Hand Smoke Exposure: No Advance Directives: No Do you have a plan to hurt others: No Plan service: No Current occupational status: employed 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 Oriented X3. No acute distress. Well-appearing Eyes: Pupils equal, round and reactive to light. ENT: Pharynx normal. Neck: Normal inspection. Neck supple. No lymph nodes noted. No crepitus CVS: Normal heart rate and rhythm. Pulses normal. Normal S1 and S2 Respiratory: No respiratory distress. Breath sounds normal. No Wheezing. No rales Abdomen: Soft and nontender. No rigidity. No distention. Skin: Skin warm and dry. Normal skin color. Normal skin turgor. Extremities: No lower extremity edema. No Lacerations. No Rash Neuro: Oriented X 3. No motor deficit. No sensory deficit. Moving all extremities. No slurred speech. CN 2 through 12 grossly intact Psych: calm, cooperative, normal affect Medical Decision Making Medical Decision Making [facility] Narrative: My interpretation of labs: Patient's serology positive for COVID-19 -I discussed with the patient that she still within the window of treatment for Paxlovid, patient declined, patient will treat symptomatically. Lab Data [facility] Lab Attestation statement: I reviewed the patient's lab results. Labs: Lab Results 01/02/24 Range/Units 03:49 Influenza Type A (PCR) NEGATIVE (Negative) Influenza Type B (PCR) NEGATIVE (Negative) RSV RNA Qual (PCR) NEGATIVE (Negative) SARS-CoV-2 RNA (RT-PCR) POSITIVE A (Negative) S. pyogenes GrpA BRONWYN Negative (Negative) Discharge Plan Discharge Clinical Impression: COVID-19 Patient Disposition: Home, Self-Care Instructions: COVID-19 (Coronavirus Disease 2019) (ED) Additional Instructions: Please follow-up with your primary care physician tomorrow. If you have any worsening or new symptoms, please return to the emergency room or call 911 Prescriptions: New ibuprofen 600 mg tablet 600 mg PO Q8H PRN (Reason: fever or pain) Qty: 14 0RF No Action cyanocobalamin (vitamin B-12) 1,000 mcg/mL solution 1,000 mcg IM Q4W 30 Days Qty: 2 6RF (DME) insulin syringe-needle U-100 [BD Eclipse Luer-Kiara] 1 mL 30 gauge x 1/2 syringe See Rx Instructions .Route Qty: 1 11RF Rx Instructions: Use for B12 injections imatinib 400 mg tablet 400 mg PO DAILY ondansetron HCl 8 mg tablet 8 mg PO TID bisacodyl [Dulcolax (bisacodyl)] 5 mg tablet,delayed release (DR/EC) 20 mg PO ONCE 1 Days Qty: 4 0RF Rx Instructions: take at noon the day before colonoscopy polyethylene glycol 3350 [Miralax] 17 gram/dose powder 238 g PO ONCE 1 Days Qty: 238 0RF Rx Instructions: Take as directed by mouth the day before your procedure. Stand Alone Forms: Work/School Release Print Language: [place] Islander
[2024-01-02 06:47] VITALS: BP 136/70; PULSE 98; RESP 16; TEMP 37.4; O2SAT 97
== END 2024-01-02 06:49 | disposition home or self-care (01) ==
PROVIDERS: Emergency Provider Emergency Medicine; PCP Internal Medicine
DX: U07.1 COVID-19 (principal)
CPT/HCPCS: 0241U; 87651; 99282; 99283

== ENCOUNTER 2024-01-09 15:38 | Outpatient (AMB) | payer OTHER, SELFPAY ==
--- NOTE | 2024-01-09 15:55 | AM.OFFVISNUR ---
Intake Intake Visit Reasons: b12 Allergies [facility] Adverse Reaction (Intermediate, Verified 01/02/24 03:43) transaminitis Office Meds cyanocobalamin (vitamin B-12) 1,000 mcg/mL injection solution Performing Provider: Phyllis Cason MD Performing Location: [facility] Administered by: Millicent Bahena RN on 01/09/24 16:03 Dose Route Admin Location Dispensed Lot Number Expiration Date NDC Citrix Lead 1,000 mcg IM 1 mL [id number] 04/15/25 22272-041-98 [employer] Coding Assessment & Plan Assessment & Plan Orders: Orders AMB Vitamin B12 Injection Patient Supplied Today E53.8 - Deficiency of other specified B group vitamins Medications: New cyanocobalamin (vitamin B-12) 1,000 mcg IM ONCE 1 mL 0RF E53.8 - Deficiency of other specified B group vitamins
== END 2024-01-09 16:06 | disposition home or self-care (01) ==
PROVIDERS: PCP Internal Medicine; Visit Provider Internal Medicine
DX: E53.8 Deficiency of other specified B group vitamins (principal)
CPT/HCPCS: 96372; J3420

== ENCOUNTER 2024-02-07 09:44 | Outpatient (AMB) | payer OTHER, SELFPAY ==
--- NOTE | 2024-02-07 09:56 | AM.OFFVISNUR ---
Intake Intake Visit Reasons: B12 Shot Allergies pexidartinib [From [facility]] Adverse Reaction (Intermediate, Verified 01/02/24 03:43) transaminitis Office Meds cyanocobalamin (vitamin B-12) 1,000 mcg/mL injection solution Performing Provider: Phyllis Cason MD Performing Location: [facility] Administered by: Millicent Bahena RN on 02/07/24 09:56 Dose Route Admin Location Dispensed Lot Number Expiration Date NDC Heat Curer 1,000 mcg IM left arm 1 mL [id number] 04/15/25 18681-240-18 [employer] Coding Assessment & Plan Assessment & Plan Orders: Orders AMB Vitamin B12 Injection Patient Supplied Today E53.8 - Deficiency of other specified B group vitamins Medications: New cyanocobalamin (vitamin B-12) 1,000 mcg IM ONCE 1 mL 0RF E53.8 - Deficiency of other specified B group vitamins
== END 2024-02-07 09:59 | disposition home or self-care (01) ==
PROVIDERS: PCP Internal Medicine; Visit Provider Internal Medicine
DX: E53.8 Deficiency of other specified B group vitamins (principal)
CPT/HCPCS: 96372; J3420

== ENCOUNTER 2024-02-07 10:12 | Outpatient (REF) | payer OTHER, SELFPAY ==
[2024-02-07 12:03] LABS: Appearance Urine Clear; Color Urine Yellow; Glucose Urine UA >=1000 mg/dL (Negative); Leukocyte Esterase Urine Small (1+) (Negative); Nitrite Urine Negative (Negative); PH 5.5 (5.0-9.0); Specific Gravity - Urine 1.025 (1.005-1.025); UMIC TRIGGER UACC YES; Urine Blood Negative (Negative); Urine Ketones Trace mg/dL (Negative); Urine Protein Negative (Neg-Trace)
[2024-02-07 12:37] LABS: Bacteria Urine 1+ (None Seen); Hyaline Casts Urine 0-2 /LPF (0-2); RBC Urine 0-2 /HPF (0-2); UACC Culture Trigger YES; WBC Urine 0-5 /HPF (0-5)
== END 2024-02-07 10:13 | disposition home or self-care (01) ==
LOC: HO.LAB 10:12
PROVIDERS: PCP Internal Medicine; Visit Provider Internal Medicine
DX: R30.0 Dysuria (principal)
CPT/HCPCS: 81001; 81003; 87086; 87147

== ENCOUNTER 2024-06-29 16:50 | Outpatient (AMB) | payer OTHER, SELFPAY ==
--- NOTE | 2024-06-29 16:58 | MHC.PC.OV ---
Vital Signs 06/29/24 16:59 Height 5 ft 2 in Weight 195 lb BMI 35.7 BP 126/80 Blood Pressure Location Lt brachial Position Sitting Intake Visit Reasons: physical exam Intake Note: Patient here for a physical exam Hematology Oncology Consultant Required: No Accompanied by: Self / Same As Patient Allergies pexidartinib [From [facility]] Adverse Reaction (Intermediate, Verified 06/29/24 17:13) transaminitis Medication List - Last Reconciled 06/29/24 by Phyllis Cason MD celecoxib mg PO BID gabapentin 100 mg PO TID insulin syringe-needle U-100 (BD Eclipse Luer-Kiara) Use for B12 injections omeprazole 20 mg PO DAILY oxycodone mg PO Tobacco use date assessed: 06/29/24 Dental Screening Dental Screen Date: 06/29/24 Did you have a dental visit in the last 12 months?: No Did you have a dental problem in the last 6 months where you did not have access to dental care?: No Was dental information given to patient?: Patient has dentist HPI HPI Comments History of Present Illness Details This is a 49-year-old female that comes for her physical exam. Mammogram done 2023. Pap smear done 2023. Has not had a colonoscopy and will be refer through open access. No chest pain or shortness on breath. [facility] Medical History (Updated 02/08/24 @ 10:58 by Phyllis Cason MD) Class 1 obesity with body mass index (BMI) of 31.0 to 31.9 in adult Transaminitis Pigmented villonodular synovitis Hypovitaminosis D B12 deficiency Knee effusion, right Right knee pain Surgical History History of knee surgery H/O knee surgery History of tubal ligation Family History Father ALS (amyotrophic lateral sclerosis) Prostate cancer Diabetes Hypertension Mother Diabetes Arthritis Hypertension Maternal Grandmother Arthritis Diabetes Hypertension Daughter of unknown cause Social History (Updated 06/29/24 @ 17:17 by Phyllis Cason MD) Housing: Apartment Alcohol intake: current Alcohol intake frequency: holidays/special occasions only Alcohol type: hard liquor Patient Tobacco Use Status: Never used Tobacco e-Cigarette/Vaping Use: Never Used Second Hand Smoke Exposure: No service: No Current occupational status: employed 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 1. Little interest or pleasure in doing things: several days 2. Feeling down, depressed, or hopeless: several days 3. Trouble falling or staying asleep, or sleeping too much: several days 4. Feeling tired or having little energy: several days 5. Poor appetite or overeating: several days 6. Feeling bad about yourself - or that you are a failure or have let yourself or your family down: not at all 7. Trouble concentrating on things, such as reading the newspaper or watching television: not at all 8. Moving or speaking so slowly that other people could have noticed. Or the opposite - being so fidgety or restless that you have been moving around a lot more than usual: not at all 9. Thoughts that you would be better off or of hurting yourself in some way: not at all Total score: 5 Depression Screening Interpretation: Positive Depression Screening Follow-up: Existing condition and Follow-up Visit Requested Depression Screening Done: Yes 13445 - PHQ-9 Billing: Yes Source: Developed by Drs. Nathen Lange, Suni Golden, Stas Hicks and colleagues, with an educational chapo from [employer]. Thrive Questionnaire Date Thrive assessed: 06/29/24 I am a: Patient What is your living situation today?: I choose not to answer this question Within the past 12 months, did the food you bought not last and you didn't have the money to get more?: Never true Within the past 12 months, did you worry whether your food would run out before you got money to buy more?: Never true Do you have trouble paying for medicines?: No Do you have trouble getting transportation to medical appointments?: No Do you have trouble paying your heating and electricity bill?: No Do you have trouble taking care of your child, family member or friend?: No Do you have trouble with day-to-day activities such as bathing, preparing meals, shopping, managing finances, etc.?: No Are you currently unemployed and looking for a job?: No Are you interested in more education?: No Please select the resources that you would like help with: None Currently or been in a relationship where the following occur: I choose not to answer THRIVE Score: 0 AUDIT C Alcohol Use Questionnaire (AUDIT-C) 1. How often do you have a drink containing alcohol?: Never Total Score: 0 Score Reviewed/Action Taken: No LEANNA-7 AMB Questionnaire LEANNA-7 Date LEANNA - 7 assessed: 06/29/24 Feeling nervous, anxious, or on edge: 1 = Several days Not being able to stop or control worryin = Not at all Worrying too much about different things: 0 = Not at all Trouble relaxin = Not at all Being so restless that it is hard to sit still: 0 = Not at all Becoming easily annoyed or irritable: 1 = Several days Feeling afraid as if something awful might happen: 0 = Not at all Total LEANNA-7 score (0-4 normal; 5-9 mild; 10-14 moderate; 15-21 severe): 2 Source: Developed by Drs. Nathen Lange, Suni Golden, Stas Hicks and colleagues, with an educational chapo from [employer]. LEANNA-7 Assessment Billing LEANNA-7 Assessment Tool: LEANNA-7 Assessment 91524 Review of Systems Const All systems reviewed & are unremarkable except as noted in HPI and below Card Denies chest pain at rest, Denies chest pain with activity, Denies edema, Denies irregular heart rhythm, Denies claudication, Denies dyspnea, Denies dyspnea on exertion, Denies orthopnea, Denies paroxysmal nocturnal dyspnea and Denies slow heart rate Resp Denies cough, Denies dyspnea and Denies dyspnea on exertion GI Denies abdominal pain, Denies change in bowel habits, Denies excessive flatus, Denies nausea and Denies vomiting Neuro Denies behavioral changes, Denies confusion and Denies lack of coordination Psych Denies behavioral changes and Denies confusion Physical exam (Primary Care) Vital Signs: Last Vital Signs BP 126/80 06/29/24 16:59 BMI result Body Mass Index 35.7 BMI Assessment/Plan discussion: High BMI High, discussed plan: lifestyle, weight reduction, dietary and physical activity Tobacco/Smoking Status: Tobacco use Status Tobacco use date assessed 06/29/24 06/29/24 17:07 Patient Tobacco Use Status Never used Tobacco 06/29/24 17:07 e-Cigarette/Vaping Use Never Used 06/29/24 17:07 PHQ-9: PHQ-9 Score PHQ-9: Total score 5 06/29/24 17:07 Depression Screening Interpretation: Positive Depression Screening Follow-up: Existing condition and Follow-up Visit Requested Thrive Assessment: Date of Thrive Assessment Date Thrive assessed 06/29/24 06/29/24 17:07 Currently or been in a relationship where the following occur: I choose not to answer Const General: No confusion Orientation/consciousness: patient oriented x3 and No confusion HENMT Head: Yes normal to inspection, Yes normocephalic and Yes atraumatic Ears: external ears normal Eyes General: appearance normal, both eyes and all related structures Eyelids: Yes eyelids normal Conjunctivae: conjunctivae normal Neck Neck: Yes normal visual inspection and Yes supple Resp Effort & Inspection: normal respiratory effort Auscultation: clear to auscultation bilaterally Cardio Jugular venous distension: no JVD Rate: regular rate Rhythm: regular rhythm Heart sounds: S1 normal heart sound present and S2 normal heart sound present GI Inspection: Yes normal to inspection Palpation (GI): Soft to palpation and nontender Auscultation: normal bowel sounds Skin General skin exam: no rashes or lesions noted Neuro General: patient oriented x3, no focal motor deficits and No confusion Extrem General: Yes full ROM Psych Appearance: grossly normal Office Procedures Flu Questionnaire Does the patient have a severe egg allergy?: No Immunizations Fluarix Triv [id number] (PF) 45 mcg (15 mcg x 3)/0.5 mL IM syringe Performing Provider: Phyllis Cason MD [facility] Documented (not given) by: JCARLOS Aponte on 06/29/24 17:07 Reason Not Given: Patient Refused Coding Level of Care Code Est Pt Prev Care 40-64y(27715) Diagnoses Physical exam Z00.00 Additional Codes PHQ-9 - 49988 - PHQ-9 Billing: Yes ([id number]) LEANNA-7 Assessment Billing - LEANNA-7 Assessment Tool: LEANNA-7 Assessment 23027 ([id number]) Time Spent (min) 30 Assessment & Plan Assessment & Plan (1) Physical exam: Code(s): Z00.00 - Encounter for general adult medical examination without abnormal findings Category: Medical Plan: Repeat in a year. Orders: Orders Influenza 9705-4040 Immunization Today Z23 - Encounter for immunization Complete Blood Count Auto Diff Today D64.9 - Anemia, unspecified Vitamin B12 and Folate Today E53.8 - Deficiency of other specified B group vitamins Lipid Panel Today E78.5 - Hyperlipidemia, unspecified Comprehensive [place]. Panel Fast Today Z00.00 - Encounter for general adult medical examination without abnormal findings Vitamin D 25-OH Total Today E55.9 - Vitamin D deficiency, unspecified Referrals Open Access Screening Colonoscopy Referral Z12.12 - Encounter for screening for malignant neoplasm of rectum
[2024-06-29 16:59] VITALS: BP 126/80; BMI 35.7
== END 2024-06-29 17:25 | disposition home or self-care (01) ==
PROVIDERS: PCP Internal Medicine; Visit Provider Internal Medicine
DX: Z00.00 Encounter for general adult medical examination without abnormal findings (principal); Z23 Encounter for immunization

== ENCOUNTER → 2024-06-29 16:50 | Outpatient (BNVA) | payer OTHER, SELFPAY | PROVIDERS: PCP Internal Medicine; Visit Provider Internal Medicine | DX: Z00.00 Encounter for general adult medical examination without abnormal findings (principal); D64.9 Anemia, unspecified; E53.8 Deficiency of other specified B group vitamins; E55.9 Vitamin D deficiency, unspecified | CPT/HCPCS: 90471; 96127; 99396 ==

== ENCOUNTER 2024-09-10 09:31 | Outpatient (REF) | payer OTHER, SELFPAY ==
[2024-09-10 10:08] LABS: MANUAL DIFF FLAG NO
[2024-09-10 10:28] LABS: Basophils Percent Auto 0.5 % (0-2); Eosinophils Percent Auto 0.6 % (0-4); Hemoglobin 10.1 g/dl (12.0-16.0); Imm Gran Abs Auto 0.02 X10*3/uL (0.00-0.03); Imm Gran Pct Auto 0.3 % (0.0-0.4); Lymphocytes Absolute Auto 2.1 X10*3/uL (1.2-4.9); Lymphocytes Percent Auto 31.2 % (20-40); Mean Corpuscular HGB Conc 27.3 g/dl (31.0-35.0); Mean Corpuscular Hemoglobin 17.6 pg (27.0-33.0); Mean Platelet Volume 10.3 fL (9.4-12.3); Monocytes Absolute Auto 0.3 X10*3/uL (0.1-1.2); Monocytes Percent Auto 4.7 % (2-11); Neutrophils Absolute Auto 4.1 x10*3/uL (2.0-8.3); Neutrophils Percent Auto 62.7 % (45-73); Platelet Count 333 X10*3/uL (160-400); Red Blood Count 5.73 X10*6/uL (4.20-5.50); Red Cell Distribution Width 20.5 % (11.0-16.0); White Blood Count 6.6 X10*3/uL (4.8-10.8)
[2024-09-10 10:29] LABS: Mean Corpuscular Volume 64.6 fL (80.0-98.0)
[2024-09-10 11:03] LABS: Alanine Aminotransferase 22 U/L (0-31); Albumin Level 3.9 g/dL (3.5-5.0); Alkaline Phosphatase 92 U/L (39-117); Anion Gap 10 (12-20); Aspartate Amino Transferase 28 U/L (5-31); Bilirubin Total 0.5 mg/dL (0.0-1.0); Blood Urea Nitrogen 6 mg/dL (9-16); Calcium 9.2 mg/dL (8.4-10.2); Carbon Dioxide 26 mmol/L (22-29); Chloride 110 mmol/L (96-108); Cholesterol 139 mg/dL (<200); Estimated Glomerular Filt Rate > 60; Glucose Fasting 117 mg/dL (60-99); HDL Cholesterol 35 mg/dL (>40); Iron 27 mcg/dL (30-160); LDL Cholesterol Calculated 86 mg/dL (<100); Percent Iron Saturation 8 % (15-50); Sodium 142 mmol/L (135-145); Total Iron Binding Capacity 333 mcg/dL (228-428); Total Protein 7.1 g/dL (6.5-8.0); Triglycerides 90 mg/dL (<150); Unsaturated Iron Binding 306 ug/dL; Vitamin D 25-OH Total 17.9 ng/mL (>30)
[2024-09-10 11:08] LABS: Appearance Urine Clear; Color Urine Yellow; Glucose Urine UA Negative (Negative); Leukocyte Esterase Urine Negative (Negative); Nitrite Urine Negative (Negative); PH 7.5 (5.0-9.0); UMIC TRIGGER UACC YES; Urine Blood Small (1+) (Negative); Urine Ketones Negative (Negative); Urine Protein Negative (Neg-Trace)
[2024-09-10 11:17] LABS: Bacteria Urine None Seen (None Seen); Hyaline Casts Urine 0-2 /LPF (0-2); Squamous Epithelial Cell Urine 0-2 /HPF (0-2); WBC Urine 0-5 /HPF (0-5)
[2024-09-10 11:20] LABS: Folate 12.3 ng/mL (> or = 4.0); Vitamin B12 347 pg/mL (200-900)
== END 2024-09-10 09:32 | disposition home or self-care (01) ==
LOC: HO.LAB 09:31
PROVIDERS: PCP Internal Medicine; Visit Provider Internal Medicine
DX: E66.9 Obesity, unspecified (principal); Z68.31 Body mass index [BMI] 31.0-31.9, adult; D64.9 Anemia, unspecified; E53.8 Deficiency of other specified B group vitamins; E55.9 Vitamin D deficiency, unspecified; E78.5 Hyperlipidemia, unspecified; R30.0 Dysuria
CPT/HCPCS: 36415; 80053; 80061; 81001; 81003; 82306; 82607; 82746; 83540; 85025

== ENCOUNTER 2024-12-21 16:59 | Outpatient (AMB) | payer OTHER, SELFPAY ==
--- NOTE | 2024-12-21 17:02 | MHC.PC.OV ---
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 Accompanied by: Significant Other Allergies pexidartinib [From Turalio] Adverse Reaction (Intermediate, Verified 12/21/24 17:27) transaminitis Medication List - Last Reconciled 12/21/24 by Phyllis Cason MD ascorbate calcium (vitamin C) 500 mg PO DAILY 90 days cholecalciferol (vitamin D3) 25 mcg PO DAILY 90 days ferrous sulfate 325 mg PO DAILY 90 days insulin syringe-needle U-100 (BD Eclipse Luer-Kiara) Use for B12 injections omeprazole 20 mg PO DAILY Tobacco use date assessed: 12/21/24 Dental Screening Dental Screen Date: 12/21/24 Did you have a dental visit in the last 12 months?: No Did you have a dental problem in the last 6 months where you did not have access to dental care?: No Was dental information given to patient?: Patient has dentist HPI HPI Comments History of Present Illness Details The patient is a 49-year-old female presenting with concerns about unintended weight loss and diabetes management. She observes a decrease in weight compared to her previous 125-pound baseline, down to 188 pounds at her last check, not due to intended efforts. Known comorbidities include Type 2 Diabetes Mellitus, Hypertension, and Gastroesophageal Reflux Disease (GERD). She reports low hemoglobin at 10.1, consistent with past iron deficiency anemia, and feels fatigued. Vitamin D deficiency is also identified, correlating with her tiredness, as she has not consistently taken her supplements. The patient's GERD symptoms have persisted despite dietary changes, with exacerbation upon consuming foods like spaghetti. Contributing to her symptoms, her role at work requires prolonged standing for up to 10 hours, further instigating physical discomfort and exacerbating fatigue. In addition, she experiences heart palpitation episodes linked to anxiety, particularly under workplace stress. The patient denies experiencing polyuria or polydipsia but admits to a low water intake habitually. [facility] Medical History (Updated 12/21/24 @ 19:06 by Phyllis Cason MD) Class 1 obesity with body mass index (BMI) of 31.0 to 31.9 in adult Transaminitis Pigmented villonodular synovitis Hypovitaminosis D B12 deficiency Knee effusion, right Right knee pain Surgical History History of total right knee replacement (TKR) History of knee surgery H/O knee surgery History of tubal ligation Family History Father ALS (amyotrophic lateral sclerosis) Prostate cancer Diabetes Hypertension Mother Diabetes Arthritis Hypertension Maternal Grandmother Arthritis Diabetes Hypertension Daughter of unknown cause Social History Housing: Apartment Alcohol intake: current Alcohol intake frequency: holidays/special occasions only Alcohol type: hard liquor Patient Tobacco Use Status: Never used Tobacco e-Cigarette/Vaping Use: Never Used Second Hand Smoke Exposure: No service: No Current occupational status: employed 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 1. Little interest or pleasure in doing things: several days 2. Feeling down, depressed, or hopeless: several days 3. Trouble falling or staying asleep, or sleeping too much: not at all 4. Feeling tired or having little energy: several days 5. Poor appetite or overeating: several days 6. Feeling bad about yourself - or that you are a failure or have let yourself or your family down: not at all 7. Trouble concentrating on things, such as reading the newspaper or watching television: not at all 8. Moving or speaking so slowly that other people could have noticed. Or the opposite - being so fidgety or restless that you have been moving around a lot more than usual: not at all 9. Thoughts that you would be better off or of hurting yourself in some way: not at all Total score: 4 Depression Screening Interpretation: Positive Depression Screening Follow-up: Existing condition and Follow-up Visit Requested Depression Screening Done: Yes 88921 - PHQ-9 Billing: Yes Source: Developed by Drs. Nathen Lange, Suni B.Stas Obando and colleagues, with an educational chapo from [employer]. Thrive Questionnaire Date Thrive assessed: 12/21/24 I am a: Patient What is your living situation today?: I have a steady place to live Within the past 12 months, did the food you bought not last and you didn't have the money to get more?: Sometimes True Within the past 12 months, did you worry whether your food would run out before you got money to buy more?: Sometimes True Do you have trouble paying for medicines?: No Do you have trouble getting transportation to medical appointments?: No Do you have trouble paying your heating and electricity bill?: Yes Do you have trouble taking care of your child, family member or friend?: No Do you have trouble with day-to-day activities such as bathing, preparing meals, shopping, managing finances, etc.?: No Are you currently unemployed and looking for a job?: No Are you interested in more education?: No Please select the resources that you would like help with: None Currently or been in a relationship where the following occur: I choose not to answer THRIVE Score: 3 AUDIT C Alcohol Use Questionnaire (AUDIT-C) 1. How often do you have a drink containing alcohol?: Never Total Score: 0 Score Reviewed/Action Taken: No LEANNA-7 AMB Questionnaire LEANNA-7 Date LEANNA - 7 assessed: 12/21/24 Feeling nervous, anxious, or on edge: 0 = Not at all Not being able to stop or control worryin = Not at all Worrying too much about different things: 0 = Not at all Trouble relaxin = Several days Being so restless that it is hard to sit still: 1 = Several days Becoming easily annoyed or irritable: 1 = Several days Feeling afraid as if something awful might happen: 0 = Not at all Total LEANNA-7 score (0-4 normal; 5-9 mild; 10-14 moderate; 15-21 severe): 3 Source: Developed by Drs. Nathen Lange, Stas Haro and colleagues, with an educational chapo from [employer]. LEANNA-7 Assessment Billing LEANNA-7 Assessment Tool: LEANNA-7 Assessment 83677 Review of Systems Const All systems reviewed & are unremarkable except as noted in HPI and below Card Denies chest pain at rest, Denies chest pain with activity, Denies edema, Denies irregular heart rhythm, Denies claudication, Denies dyspnea, Denies dyspnea on exertion, Denies orthopnea, Denies paroxysmal nocturnal dyspnea and Denies slow heart rate Resp Denies cough, Denies dyspnea and Denies dyspnea on exertion GI Denies abdominal pain, Denies change in bowel habits, Denies excessive flatus, Denies nausea and Denies vomiting Musc Reports arthralgias Physical exam (Primary Care) Vital Signs: Last Vital Signs BP 132/80 12/21/24 17:03 BMI result Body Mass Index 34.4 Tobacco/Smoking Status: Tobacco use Status Tobacco use date assessed 12/21/24 12/21/24 17:08 Patient Tobacco Use Status Never used Tobacco 12/21/24 17:08 e-Cigarette/Vaping Use Never Used 12/21/24 17:08 PHQ-9: PHQ-9 Score PHQ-9: Total score 4 12/21/24 17:30 Depression Screening Interpretation: Positive Depression Screening Follow-up: Existing condition and Follow-up Visit Requested Thrive Assessment: Date of Thrive Assessment Date Thrive assessed 12/21/24 12/21/24 17:08 Currently or been in a relationship where the following occur: I choose not to answer Resp Effort & Inspection: normal respiratory effort Auscultation: clear to auscultation bilaterally Cardio Jugular venous distension: no JVD Rate: regular rate Rhythm: regular rhythm Heart sounds: S1 normal heart sound present and S2 normal heart sound present Extrem General: Yes full ROM Coding Level of Care Code Est Pt Level 4 (81570) Complex EM visit Add On G2211 Diagnoses Weight loss R63.4 Right knee pain M25.561 Hypovitaminosis D E55.9 Anemia D64.9 Chronic GERD K21.9 Additional Codes LEANNA-7 Assessment Billing - LEANNA-7 Assessment Tool: LEANNA-7 Assessment 32234 ([id number]) PHQ-9 - 52406 - PHQ-9 Billing: Yes ([id number]) Time Spent (min) 22 Assessment & Plan Assessment & Plan (1) Weight loss: Code(s): R63.4 - Abnormal weight loss Category: Medical (2) Right knee pain: Code(s): M25.561 - Pain in right knee Category: Medical (3) Hypovitaminosis D: Code(s): E55.9 - Vitamin D deficiency, unspecified Category: Medical (4) Anemia: Code(s): D64.9 - Anemia, unspecified Category: Medical (5) Chronic GERD: Code(s): K21.9 - Gastro-esophageal reflux disease without esophagitis Category: Medical Plan We will conduct a series of laboratory tests, including thyroid, hemoglobin, vitamin D, and glucose, to better understand the underlying causes of the patient's fatigue and manage her Type 2 Diabetes Mellitus effectively. Managing hypertension with standard medication and lifestyle adjustments remains a priority. For her GERD, Omeprazole will continue, and dietary strategies will be reviewed. Guided by her concern about palpitations, arranging a Holter monitor study aims to explore episodic heart palpitations linked to occupational anxiety. Monitoring weight loss trajectory will ensure no alarming causal conditions are overlooked. Finally, exploring her work environment for feasible adaptive changes should alleviate excessive physical stress on the patient. Patient was informed and verbally consented to the use of an ambient scribe for clinic note documentation during this visit. I discussed the potential for laboratory testing to assist in evaluating the patient's fatigue and diabetes control, including assessments for thyroid function, hemoglobin, and vitamin D levels. We talked about regular management of her chronic conditions such as diabetes and hypertension, advising consistent medication and lifestyle modifications. I outlined the benefits of monitoring with a Holter to explore heart palpitations and the risks associated with undertaking such a study. We discussed continuous GERD management using Omeprazole, emphasizing avoiding trigger foods and eating close to bedtime. I addressed the benefits of workplace adjustments to help manage physical stress and assured her of follow-up to assess the outcomes of these interventions and further adjustment of the care plan as necessary. Orders: Orders Complete Blood Count Auto Diff Today D64.9 - Anemia, unspecified IRON PROFILE Today D64.9 - Anemia, unspecified Vitamin D 25-OH Total Today E55.9 - Vitamin D deficiency, unspecified Comprehensive [place]. Panel Fast Today M25.561 - Pain in right knee Thyroid Stimulating Hormone Today R63.4 - Abnormal weight loss Referrals Orthopedics Referral M25.561 - Pain in right knee Medications: Refilled ferrous sulfate 325 mg PO DAILY 90 tabs 1RF 90 days cholecalciferol (vitamin D3) 25 mcg PO DAILY 90 caps 1RF 90 days Patient Instructions: - Schedule lab tests for thyroid, vitamin D, hemoglobin, glucose, and magnesium. - Continue Omeprazole for heartburn; avoid eating close to bedtime. - Monitor blood sugar regularly and follow dietary modifications for diabetes. - Apply workplace ergonomic changes to reduce strain. - Follow up with recommendations for heart palpitation monitoring.
[2024-12-21 17:03] VITALS: BP 132/80; BMI 34.4
--- OUTSIDE RECORDS SUMMARY | 2024-12-21 17:49 | XMS_ITS | Clinical Summary ---
Author Organization [facility] Address [address] [place] [address] Care Team Providers Care Welfare Worker Name Role Phone Unavailable Primary Care Provider Unavailabl e Immunizations Name Administration Dates Next Due Moderna Covid-19 Vaccine 12+ 08/22/2021,12/28/19,11/29/2020 Moderna Covid-19 Vaccine 6+ Bivalent 09/07/2022 Social History Tobacco Use Types Packs/Day Years Used Date Smoking Tobacco: Never Assessed Comments Unknown Sex and Gender Information Value Date Recorded Sex Assigned at Not on file Legal Sex Female 12:03 PM EST Gender Identity Not on file Sexual Orientation Not on file Plan of Treatment Health Maintenance Due Date Last Done Comments CT Colonography 1975 Colonoscopy 1975 Colorectal Cancer Screening 1975 Depression Screening 1975 FIT DNA/Cologuard 1975 FIT 1975 FOBT 1975 Sigmoidoscopy 1975 Alcohol/Substance Use Screening 1987 Tobacco Screening 1987 Family Planning (PISQ) 1990 Hepatitis B Vaccines (1 of 3 - 19+ 3-dose series) 1994 Pap Smear 01/10/1996 Cervical Cancer Screening 2005 HPV/Cotest 2005 Mammogram 2015 DTaP/Tdap/Td Vaccines (2 - Td or Tdap) 07/30/2022 07/30/2012 COVID-19 Vaccine ( season) 2024 09/07/2022, 08/22/2021, 12/27/2020, Additional history exists Influenza Vaccine (#1) 2024 07/30/2012 Zoster Vaccines (1 of 2) 2025 RSV Patients and Patients Aged 60 years or older (1 - 1-dose 75+ series) 2050 HIB Vaccines Aged Out No longer eligi ble based on patient's age to complete this topic HPV Vaccines Aged Out No longer eligi ble based on patient's age to complete this topic Hepatitis A Vaccines Aged Out No long er eligible based on patient's age to complete this topic IPV Vaccines Aged Out No longer eligi ble based on patient's age to complete this topic Meningococcal Vaccine Aged Out No nella desire eligible based on patient's age to complete this topic Pneumococcal Vaccine: Pediatrics (0 to 5 Years) and At-Risk Patients (6 to 49) Years) Aged Out No longer eligible based on patient's age to complete this topic RSV under 20 months Aged Out No longe r eligible based on patient's age to complete this topic Rotavirus Vaccines Aged Out No longer eligible based on patient's age to complete this topic
--- OUTSIDE RECORDS SUMMARY | 2024-12-21 17:49 | XMS_ITS | Referral Summary ---
Author Organization [facility] Address [address] [place] [address] Care Team Providers Care Lead Assembler Name Role Phone Phyllis Cintron Primary Care Provider [phone] Allergies Active Allergy Reactions Criticality Noted Date Comments Pexidartinib Unknown 05/28/2023 Medications vitamin B-12 500 mcg tablet TAKE 1 TABLET (500 MCG) BY MOUTH EVERY DAY 90 tablet 1 10/30/2023 Active acetaminophen (TYLENOL) 325 mg tablet Take 2 tablets (650 mg total) by mouth every 6 hours. 05/29/2024 Active docusate sodium (COLACE) 100 mg capsule Take 1 capsule (100 mg total) by mouth 2 times a day. 05/28/2024 Active gabapentin (NEURONTIN) 100 mg capsule Take 1 capsule (100 mg total) by mouth every 8 hours. 90 capsule 05/28/2024 11:45 AM EDT 05/28/2024 Active polyethylene glycol 3350 (MIRALAX) 17 gram packet Take 1 packet (17 g total) by mouth daily as needed for constipation . Mix powder in 4 to 8 oz of water, juice, coffee, or tea prior to administrati on. 05/28/2024 Active senna (SENOKOT) 8.6 mg tablet Take 2 tablets (17.2 mg total) by mouth nightly. 05/28/2024 Active omeprazole (PriLOSEC) 20 mg capsule Take 1 capsule (20 mg total) by mouth once a day. 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 No 05/27/2024 Hunger Vital Sign Answer Date Recorded Within the past 12 months, y ou worried that your food would run out before you got the money to buy more. Never true 05/27/20 24 Within the past 12 months, t he food you bought just didn't last and you didn't have money to get more. Never true 05/27/2024 Transportation Answer Date Recorded In the past 12 months, has l ack of reliable transportation kept you from medical appointments, meetings, work or from getting things needed for daily living? No 05/27/2024 Housing Answer Date Recorded Housing Risk Low 2 05/27/2024 Housing Risk Medium Not on file 05/27/2024 Housing Risk High Not on file 05/27/2024 What is your living situation today? 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 Not on file Not on file Last Filed Vital Signs Vital Sign Reading Time Taken Comments Blood Pressure 118/72 05/28/2024 8:03 AM EDT Pulse 107 05/28/2024 8:03 AM EDT Temperature 36.7 ??C (98.1 ??F) 05/28/2024 8:03 AM ED T Respiratory Rate 18 05/28/2024 9:33 AM EDT Oxygen Saturation 99% 05/28/2024 8:03 AM EDT Inhaled Oxygen Concentration - - Weight 86.5 kg (190 lb 11.2 oz) 05/28/2024 6:00 AM EDT Height 157.4 cm (5' 1.97 ) 05/27/2024 6:02 AM ED T Body Mass Index 34.91 05/27/2024 6:02 AM EDT Plan of Treatment Not on file Medical Devices Implanted Type Area Podiatric Assistant Device Identifier Shelf Expiration Date Model / Serial / Lot Cement Tobramycin Impreganated Simplex P - [id number] Implanted:Qty: 2 on 05/27/2024 by Alexis Lewis MD at [facility] Implant Right: Knee DORINDA 10/16/2024 [id number] / / [id number] Component Femoral Posterior Stabilized Right Cemented Narrow Size 5 Attune - [id number] Implanted:Qty: 1 on 05/27/2024 by Alexis Lewis MD at [facility] Implant Right: Knee DEPUY 02/16/2032 1504-06-09 5 / / [id number] Base Tibial Fixed Bearing Cemented Revision Size 4 Attune - [id number] Implanted:Qty: 1 on 05/27/2024 by Alexis Lewis MD at [facility] Implant Right: Knee DEPUY 02/15/2034 4 / / [id number] [id number] Medialized Dome 35mm Attune - [id number] Implanted:Qty: 1 on 05/27/2024 by Alexis Lewis MD at [facility] Implant Right: Knee DEPUY 03/18/2032 5 / / [id number] Stem Femoral Cemented Revision Knee System [id number] Attune - [id number] Implanted:Qty: 1 on 05/27/2024 by Alexis Lewis MD at [facility] Implant Right: Knee DEPUY 01/16/2034 0 / / [id number] Insert Tibial Fixed Bearing Posterior Stabilized Attune Size 5 8mm - [id number] Implanted:Qty: 1 on 05/27/2024 by Alexis Lewis MD at [facility] Implant Right: Knee DEPUY 01/16/2027 8 / / [id number] [facility] Advance Directives Documents on File Type Date Recorded Patient Chair And Couch Maker Expl anation Health Care Proxy 05/18/2024 8:46 AM HCP * Full Code (Latest Code Status on File) Date Activated Date Inactivated Comments 05/27/2024 12:08 PM 05/28/2024 3:52 PM * Presumed Full Code Date Activated Date Inactivated Comments 05/27/2024 6:13 AM 05/27/2024 12:08 PM Healthcare Agents on File Name Relationship Healthcare Agent Relationship Communication Memo Grover Spouse Health Care Agent Care Teams Lead Assembler Relationship Specialty Start Date End Date Phyllis Cintron [address] [place] [address] [place] [address] PCP - General Internal Medicine 01/02/23
--- OUTSIDE RECORDS SUMMARY | 2024-12-21 17:49 | XMS_ITS | Clinical Summary ---
Author Organization [facility] Address [address] [place] [address] Care Team Providers Care Court Recorder Name Role Phone Unavailable Primary Care Provider Unavailabl e Social History Tobacco Use Types Packs/Day Years Used Date Smoking Tobacco: Never Assessed Comments Unknown Sex and Gender Information Value Date Recorded Sex Assigned at Not on file Legal Sex Female 4:55 AM EST Gender Identity Not on file Sexual Orientation Not on file Plan of Treatment Health Maintenance Due Date Last Done Comments Breast Cancer Screening 1975 DTaP,Tdap,and Td Vaccines (1 - Tdap) 1994 Hepatitis B Vaccines (1 of 3 - 19+ 3-dose series) 1994 Cervical Cancer Screening: P ap Smear 01/10/1996 Colorectal Cancer Screening: Colonoscopy 07/22/2022 Depression Screening 07/22/2022 HIV Screening 07/22/2022 Hepatitis C Screening 07/22/2022 Social Influencers of Health Screening 07/22/2022 COVID-19 Vaccine (2023-2 5 season) 2024 Influenza Vaccine (Season Ended) 2025 HIB Vaccines Aged Out No longer eligi [...] on patient's age to complete this topic MMR Vaccines Aged Out No longer eligi ble based on patient's age to complete this topic Meningococcal ACWY Vaccine Aged Out N o longer eligible based on patient's age to complete this topic Meningococcal B Vaccine Aged Out No l onger eligible based on patient's age to complete this topic Pneumococcal Vaccine: Pediat rics (0 to 5 Years) and At-Risk Patients (6 to 64 Years) Aged Out No longer eligible b ased on patient's age to complete this topic RSV Immunization Patients Un danielle 20 months Aged Out No longer eligible b ased on patient's age to complete this topic Varicella Vaccines Aged Out No longer eligible based on patient's age to complete this topic
--- OUTSIDE RECORDS SUMMARY | 2024-12-21 17:49 | XMS_ITS | Clinical Summary ---
Author Organization [facility] Address [address] [place] [address] Care Team Providers Care Senior Mortgage Underwriter Name Role Phone Unavailable Primary Care Provider Unavailabl e Source Comments PLEASE NOTE, if this patient is a minor, it may be UNLAWFUL to discuss sensitive information that is contained in these records (such as FAMILY PLANNING, MENTAL HEALTH or SUBSTANCE ABUSE) with the minor patient's parent or other person without the patient's specific authorization.[facility] Allergies No known active allergies Medications ibuprofen (ADVIL,MOTRIN) 600 mg tabletIndicatio ns:pain,back pain Take 600 mg by mouth 4 (four) times daily as needed. Indications: Pain, back pain Active sertraline (ZOLOFT) 100 mg tabletIndicatio ns:major depressive disorder Take 100 mg by mouth once daily. Indications: Major Depressive Disorder Active zolpidem (AMBIEN) 10 mg tabletIndicatio ns:sleep-onset insomnia Take 10 mg by mouth nightly at bedtime as needed. Take immediately before bedtime. Indications: Sleep-Onset Insomnia Active predniSONE (DELTASONE) 20 mg tabletIndicatio ns:Rash Take 1 Tab by mouth once daily. 10 Tab 0 3 Active triamcinolone (KENALOG) 0.1 % creamIndication s:Rash Apply topically 2 (two) times daily. 15 g 1 3 Active ketoconazole (NIZORAL) 2 % shampooIndicati ons:Rash,Tinea corporis Apply topically once daily as needed for itching. 120 mL 0 3 Active terbinafine (LAMISIL) 250 mg tabletIndicatio ns:Rash,Tinea corporis Take 1 Tab by mouth once daily. 7 Tab 0 3 Active clotrimazole (LOTRIMIN) 1 % creamIndication s:Rash,Tinea corporis Apply topically 2 (two) times daily. 30 g 0 3 Active gabapentin (NEURONTIN) 100 mg capsuleIndicati ons:Knee pain Take 1 Cap by mouth 3 (three) times daily. 90 Cap 3 4 Active nabumetone (RELAFEN) 500 mg tabletIndicatio ns:Knee pain Take 1 Tab by mouth 2 (two) times daily. 60 Tab 2 4 Active cholecalciferol , vitamin D3, (VITAMIN D3) 50,000 unit tab tabletIndicatio ns:Vitamin D deficiency disease Take 1 Cap by mouth once a week. 4 Cap 6 4 Active ferrous gluconate (FERGON) 324 mg (38 mg iron) tabletIndicatio ns:Anemia Take 1 Tab by mouth 2 (two) times daily with a meal. 60 Tab 2 4 Active Active Problems Problem Noted Date Diagnosed Date Knee pain 08/29/2013 Tinea corporis 07/30/2013 Immunizations Immunization Administration Dates Next Due INFLUENZA, SEASONAL, INJECTABLE 07/30/2012 TDAP 07/30/2012 Social History Tobacco Use Types Packs/Day Years Used Date Smoking Tobacco: Never Alcohol Use Standard Drinks/Week Comments Yes 0 (1 standard drink = 0.6 oz pur e alcohol) social Comments Unknown Sex and Gender Information Value Date Recorded Sex Assigned at Not on file Legal Sex Female 11:36 AM PDT Gender Identity Not on file Sexual Orientation Not on file Last Filed Vital Signs Vital Sign Reading Time Taken Comments Blood Pressure 100/62 08/27/2013 2:38 PM EST Pulse 67 08/27/2013 2:38 PM EST Temperature 37.1 ??C (98.8 ??F) 08/27/2013 2:38 PM ES T Respiratory Rate 25 08/27/2013 2:38 PM EST Oxygen Saturation 100% 05/12/2013 10:11 AM EDT Inhaled Oxygen Concentration - - Weight 77.1 kg (170 lb) 08/27/2013 2:38 PM EST Height 160 cm (5' 3 ) 08/27/2013 2:38 PM EST Body Mass Index 30.11 08/27/2013 2:38 PM EST Plan of Treatment Not on file Insurance [facility] Member Subscriber Plan / Payer (Ef fective 2013-Present) Name:Lynnette [place]ver Relation to Subscriber:Self Name:Lynnette [place] Payer ID:[id number] Group ID:Not on file Type:Medicaid Address: [address] [place] [address] [facility] MEDICAID
--- OUTSIDE RECORDS SUMMARY | 2024-12-21 17:49 | XMS_ITS | Clinical Summary ---
Author Organization [facility] Address [address] [place] [address] Care Team Providers Care Orange Grower Name Role Phone Phyllis Cintron Primary Care Provider [phone] Allergies Active Allergy Reactions Criticality Noted Date [...] drink = 0.6 oz pur e alcohol) [facility] Utilities Answer Date Recorded In the past [...] 05/27/2024 6:02 AM EDT Plan of Treatment Health Maintenance Due Date Last Done Comments Cervical Cancer Screening 1975 Cologuard 1975 Colon Cancer Screening 1975 Colonoscopy 1975 FOBT / Fit Test 1975 HIV Screening 1975 HPV and Pap Smear 1975 Hepatitis C Screening 1975 Pap Smear 1975 Sigmoidoscopy 1975 Hepatitis B Vaccines (1 of 3 - 19+ 3-dose series) 1994 Mammogram 2015 DTaP,Tdap,and Td Vaccines (2 - Td or Tdap) 07/30/2022 07/30/2012 COVID-19 Vaccine ( season) 2024 09/07/2022, 08/22/2021, 12/27/2020, Additional history exists Alcohol/Substance Use Screening 08/19/2024 07/28/2024 Depression Screening and Follow-Up 08/19/2024 Social Drivers of Health Annual Screening 08/19/2024 Influenza Vaccine (Season Ended) 2025 07/30/2012 RSV Vaccine (60+ years old and patients) (1 - 1-dose 75+ series) 2050 Pneumococcal Vaccine: Pediatric (0-5 Years) and At-Risk Patients (6-50 Years) Aged Out No longer eligible based on patient's age to complete this topic Medical Devices Implanted Type Area Production Planning Supervisor Device Identifier Shelf Expiration Date Model / Serial / Lot Cement Tobramycin Impreganated Simplex P - [id number] Implanted:Qty: 2 on 05/27/2024 by Alexis Lewis MD at [facility] Implant Right: Knee DORINDA 10/16/2024 [id number] / / [id number] Component Femoral Posterior Stabilized Right Cemented Narrow Size 5 Attune - [id number] Implanted:Qty: 1 on 05/27/2024 by Alexis Lewis MD at [facility] Implant Right: Knee DEPUY 02/16/2032 1504-06-09 5 / / [id number] Base Tibial Fixed Bearing Cemented Revision Size 4 Attune - [id number] Implanted:Qty: 1 on 05/27/2024 by Alexis Lewis MD at [facility] Implant Right: Knee DEPUY 02/15/2034 4 / / [id number] Patella Medialized Dome 35mm Attune - [id number] Implanted:Qty: 1 on 05/27/2024 by Alexis Lewis MD at [facility] Implant Right: Knee DEPUY 03/18/2032 5 / / [id number] Stem Femoral Cemented Revision Knee System [id number] Attune - [id number] Implanted:Qty: 1 on 05/27/2024 by Alexis Lewis MD at [facility] Implant Right: Knee DEPUY 01/16/2034 0 / / [id number] Insert Tibial Fixed Bearing Posterior Stabilized Attune Size 5 8mm - [id number] Implanted:Qty: 1 on 05/27/2024 by Alexis Lewis MD at [facility] Implant Right: Knee DEPUY 01/16/2027 8 / / [id number] [place] [address] [address] HSNO/FREE CARE Advance Directives Documents on File Type Date Recorded Patient Concrete Pointer Expl anation Health Care Proxy 05/18/2024 8:46 AM HCP * Full Code (Latest Code Status on File) Date Activated Date Inactivated Comments 05/27/2024 12:08 PM 05/28/2024 3:52 PM * Presumed Full Code Date Activated Date Inactivated Comments 05/27/2024 6:13 AM 05/27/2024 12:08 PM Healthcare Agents on File Name Relationship Healthcare Agent Relationship Communication Memo [place] Spouse Health Care Agent Care Teams Orange Grower Relationship Specialty Start Date End Date Phyllis Cintron [address] [place] [address] [place] [address] PCP - General Internal Medicine 01/02/23
== END 2024-12-21 17:40 | disposition home or self-care (01) ==
LOC: HO.HMCH 17:00
PROVIDERS: PCP Internal Medicine; Visit Provider Internal Medicine
DX: R63.4 Abnormal weight loss (principal); M25.561 Pain in right knee; E55.9 Vitamin D deficiency, unspecified; D64.9 Anemia, unspecified; K21.9 Gastro-esophageal reflux disease without esophagitis

== ENCOUNTER → 2024-12-21 16:59 | Outpatient (BNVA) | payer OTHER, SELFPAY | PROVIDERS: PCP Internal Medicine; Visit Provider Internal Medicine | DX: R63.4 Abnormal weight loss (principal); M25.561 Pain in right knee; E55.9 Vitamin D deficiency, unspecified; D64.9 Anemia, unspecified; K21.9 Gastro-esophageal reflux disease without esophagitis; Z79.899 Other long term (current) drug therapy | CPT/HCPCS: 96127; 99212 ==

== ENCOUNTER 2025-03-05 09:33 | Outpatient (REF) | payer OTHER, SELFPAY ==
--- NOTE | ~2025-03-05 | XR_ITS ---
CLINICAL HISTORY: M25.561 - Pain in right knee 2 view right knee Comparison: None provided Findings: No acute fracture. No dislocation. Previous knee arthroplasty. Prosthesis is intact. No radiographic evidence of prosthesis loosening. No erosions. No joint effusion. Posterior soft tissue surgical clips. Mild anterior soft tissue edema. IMPRESSION: 1. No acute findings. 2. Status post TKA. This document has been electronically signed by: Dorie Schmidt MD on 03/05/2025 17:52:33
--- OUTSIDE RECORDS SUMMARY | 2025-03-05 09:39 | XMS_ITS | Clinical Summary ---
Author Organization [facility] Address [address] [place] [address] Care Team Providers Care Pay Station Collector Name Role Phone Unavailable Primary Care Provider [...] Influencers of Health Screening 07/22/2022 COVID-19 Vaccine (1 - 2023-2 5 season) 2024 Pneumococcal Vaccine: 50+ Ye ars (1 of 1 - PCV) 2025 Zoster Vaccines (1 of 2) 2025 Influenza Vaccine (#1) 2025 HIB Vaccines Aged Out No longer [...] 5 Years) and At-Risk Patients (6 to 49 Years) Aged Out No longer eligible b ased on patient's age to complete this topic RSV Immunization Patients Un danielle 20 months Aged Out No longer eligible b ased on patient's age to complete this topic Varicella Vaccines Aged Out No longer eligible based on patient's age to complete this topic
--- OUTSIDE RECORDS SUMMARY | 2025-03-05 09:39 | XMS_ITS | Clinical Summary ---
Author Organization [facility] Address [address] [place] [address] Care Team Providers Care Auto Motor Mechanic Name Role Phone Unavailable Primary Care Provider [...] 67 08/27/2013 2:38 PM EST Temperature 37.1 C (98.8 F) 08/27/2013 2:38 PM EST Respiratory Rate 25 08/27/2013 2:38 PM EST Oxygen Saturation 100% 05/12/2013 10:11 AM EDT Inhaled Oxygen Concentration - - Weight 77.1 kg (170 lb) 08/27/2013 2:38 PM EST Height 160 cm (5' 3 ) 08/27/2013 2:38 PM EST Body Mass Index 30.11 08/27/2013 2:38 PM EST Plan of Treatment Not on file Insurance [facility] MEDICAID
--- OUTSIDE RECORDS SUMMARY | 2025-03-05 09:39 | XMS_ITS | Referral Summary ---
Author Organization [facility] Address [address] [place] [address] Care Team Providers Care Sheet Metal Worker Helper Name Role Phone Phyllis Cintron Primary Care Provider [phone] Allergies Active Allergy Reactions Criticality Noted Date [...] drink = 0.6 oz pur e alcohol) [facility] Utilities Answer Date Recorded In the past 12 months has e electric, gas, oil, or water company [...] 107 05/28/2024 8:03 AM EDT Temperature 36.7 C (98.1 F) 05/28/2024 8:03 AM EDT Respiratory Rate 18 05/28/2024 9:33 AM EDT Oxygen Saturation 99% 05/28/2024 8:03 AM EDT Inhaled Oxygen Concentration - - Weight 86.5 kg (190 lb 11.2 oz) 05/28/2024 6:00 AM EDT Height 157.4 cm (5' 1.97 ) 05/27/2024 6:02 AM ED T Body Mass Index 34.91 05/27/2024 6:02 AM EDT Plan of Treatment Not on file Medical Devices Implanted Type Area Marine Firefighter Device Identifier Shelf Expiration Date Model / Serial / Lot Cement Tobramycin Impreganated Simplex P - [id number] Implanted:Qty: 2 on 05/27/2024 by Alexis Lewis MD at [facility] Implant Right: Knee DORINDA 10/16/2024 [id number] / / [id number] Component Femoral Posterior Stabilized Right Cemented Narrow Size 5 Attune - [id number] Implanted:Qty: 1 on 05/27/2024 by Alexis Lewis MD at [facility] Implant Right: Knee DEPUY 02/16/2032 1504-06-09 5 / / [id number] Base Tibial Fixed Bearing Cemented Revision Size 4 Attune - [id number] Implanted:Qty: 1 on 05/27/2024 by Alexis Lewis MD at [facility] Implant Right: Knee DEPUY 02/15/2034 4 / / [id number] Patella Medialized Dome 35mm Attune - [id number] Implanted:Qty: 1 on 05/27/2024 by Alexis Lewis MD at [facility] Implant Right: Knee DEPUY 03/18/2032 5 / / [id number] Stem Femoral Cemented Revision Knee System 70fhp48oc Attune - [id number] Implanted:Qty: 1 on 05/27/2024 by Alexis Lewis MD at [facility] Implant Right: Knee DEPUY 01/16/2034 0 / / [id number] Insert Tibial Fixed Bearing Posterior Stabilized Attune Size 5 8mm - [id number] Implanted:Qty: 1 on 05/27/2024 by Alexis Lewis MD at [facility] Implant Right: Knee DEPUY 01/16/2027 8 / / [id number] Insurance [facility] Advance Directives Documents on File Type Date Recorded Patient Canvas Goods Maker Expl anation Health Care Proxy 05/18/2024 8:46 AM HCP * Full Code (Latest Code Status on File) Date Activated Date Inactivated Comments 05/27/2024 12:08 PM 05/28/2024 3:52 PM * Presumed Full Code Date Activated Date Inactivated Comments 05/27/2024 6:13 AM 05/27/2024 12:08 PM Healthcare Agents on File Name Relationship Healthcare Agent Relationship Communication Memo [place]ver Spouse Health Care Agent Care Teams Sheet Metal Worker Helper Relationship Specialty Start Date End Date Phyllis Cintron [address] [place] [address] [place] [address] PCP - General Internal Medicine 01/02/23
--- OUTSIDE RECORDS SUMMARY | 2025-03-05 09:39 | XMS_ITS | Encounter Summary ---
Author Organization [facility] Address [address] [place] [id number] Phone Care Team Providers Care Bilingual Customer Service Specialist Name Role Phone Phyllis Cintron MD Unavailable [phone] Phyllis Cintron MD Primary Care Provid er Mark Santos MD, PhD Unavailable [phone] Encounter Details Date Type Department Care Team (Late st Contact Info) Description 07/28/2021 Procedure Pass [facility] PERIOPERATIVE DEPT [address] [place] [id number] Social History Tobacco Use Types Packs/Day Years Used Date Smoking Tobacco: Never Smokeless Tobacco: Never Alcohol Use Standard Drinks/Week Comments Never 0 (1 standard drink = 0.6 oz pur e alcohol) rarely, socailly Comments No Sex and Gender Information Value Date Recorded Sex Assigned at Female 03/31/2021 10:40 AM EDT Legal Sex Female 10:43 AM EDT Gender Identity Female 03/31/2021 10:40 AM EDT Sexual Orientation Straight 04/17/2022 3: 52 PM EDT documented as of this encounter Functional Status * Calculated C-SSRS Risk Score (Lifetime/Recent) Answer Date of Assessment Author No Risk Indicated 07/28/2021 9:00 PM Ramona Lakhani RN * [place] Suicide Severity Rating Scale (Screener/Recent Self-Report) Question Answer Date of Assessment Author 1. Wish to be (Past 1 Month) No 07/28/2021 9:00 PM Ramona Lakhani RN 2. Non-Specific Active Suicidal Thoughts (Past 1 Month) No 07/28/2021 9:00 PM Ramona Lakhani RN 6. Suicidal Behavior (Lifetime) No 07/28/2021 9:00 PM Ramona Lakhani RN documented as of this encounter Plan of Treatment Not on file documented as of this encounter Visit Diagnoses Not on filedocumented in this encounter Care Teams Bilingual Customer Service Specialist Relationship Specialty Start Date End Date Phyllis Cintron MD [address] [place] [address] PCP - General Internal Medicine 02/02/21 Phyllis Cintron MD [address] [place] [address] Internal Medicine 02/02/21 Mark Santos MD, PhD [address] [place] [phone] [email or web address] Medical Oncology 02/14/21 documented as of this encounter Additional Source Comments The information contained in this document represents components of the legal health record. It is not the complete legal health record.[facility]
--- OUTSIDE RECORDS SUMMARY | 2025-03-05 09:39 | XMS_ITS | Clinical Summary ---
Author Organization [facility] Address [address] [place] [address] [address] [place] [address] Care Team Providers Care Service Technician Copier Name Role Phone Unavailable Primary Care Provider Unavailabl e Immunizations Immunization Administration Dates Next Due Moderna Covid-19 Vaccine [...] 1975 FIT 1975 FOBT 1975 Sigmoidoscopy 1975 Disability Screening 1975 Alcohol/Substance Use Screening 1987 Tobacco Screening 1987 Family Planning (PISQ) 1990 Hepatitis B Vaccines (1 of 3 - 19+ 3-dose series) 1994 Pap Smear 01/10/1996 Cervical Cancer Screening 2005 HPV/Cotest 2005 Mammogram 2015 DTaP/Tdap/Td Vaccines (2 - Td or Tdap) 07/30/2022 07/30/2012 COVID-19 Vaccine ( season) 2024 09/07/2022, 08/22/2021, 12/27/2020, Additional history exists Pneumococcal Vaccine: 50+ Years (1 of 1 - PCV) 2025 Zoster Vaccines (1 of 2) 2025 Influenza Vaccine (#1) 2025 07/30/2012 RSV Patients and Patients Aged 60 years [...]
[2025-03-05 09:57] LABS: MANUAL DIFF FLAG NO
[2025-03-05 10:27] LABS: Hematocrit 39.4 % (37.0-47.0); Hemoglobin 11.3 g/dl (12.0-16.0); Imm Gran Abs Auto 0.01 X10*3/uL (0.00-0.03); Imm Gran Pct Auto 0.1 % (0.0-0.4); Lymphocytes Absolute Auto 2.7 X10*3/uL (1.2-4.9); Mean Corpuscular HGB Conc 28.7 g/dl (31.0-35.0); Mean Corpuscular Hemoglobin 18.9 pg (27.0-33.0); Mean Corpuscular Volume 65.9 fL (80.0-98.0); NRBC Abs Auto 0.000 X10*3/uL (0.0-0.012); NRBC Pct Auto 0.0 /100WBC (0.0-0.2); Platelet Count 366 X10*3/uL (160-400); Red Blood Count 5.98 X10*6/uL (4.20-5.50); White Blood Count 7.7 X10*3/uL (4.8-10.8)
[2025-03-05 11:19] LABS: Appearance Urine Clear; Glucose Urine UA Negative (Negative); PH 8.0 (5.0-9.0); Specific Gravity - Urine 1.020 (1.005-1.025)
[2025-03-05 11:22] LABS: Alanine Aminotransferase 13 U/L (0-31); Albumin Level 4.2 g/dL (3.5-5.0); Alkaline Phosphatase 85 U/L (39-117); Anion Gap 9 (12-20); Aspartate Amino Transferase 21 U/L (5-31); Blood Urea Nitrogen 5 mg/dL (9-16); Calcium 8.9 mg/dL (8.4-10.2); Carbon Dioxide 28 mmol/L (22-29); Chloride 109 mmol/L (96-108); Cholesterol 152 mg/dL (<200); Estimated Glomerular Filt Rate > 60; HDL Cholesterol 40 mg/dL (>40); Iron 33 mcg/dL (30-160); Magnesium 2.2 mg/dL (1.6-2.6); Percent Iron Saturation 10 % (15-50); Potassium 4.1 mmol/L (3.3-5.1); Sodium 142 mmol/L (135-145); Thyroid Stimulating Hormone 0.50 uIU/mL (0.32-4.0); Total Iron Binding Capacity 316 mcg/dL (228-428); Total Protein 6.9 g/dL (6.5-8.0); Triglycerides 65 mg/dL (<150); Unsaturated Iron Binding 283 ug/dL
[2025-03-05 11:37] LABS: Folate 10.3 ng/mL (> or = 4.0); Vitamin B12 259 pg/mL (200-900)
== END 2025-03-05 09:34 | disposition home or self-care (01) ==
LOC: HO.XRAY 09:33
PROVIDERS: PCP Internal Medicine; Visit Provider Internal Medicine
DX: Z00.00 Encounter for general adult medical examination without abnormal findings (principal); M25.561 Pain in right knee; E55.9 Vitamin D deficiency, unspecified; D64.9 Anemia, unspecified; E53.8 Deficiency of other specified B group vitamins; E78.5 Hyperlipidemia, unspecified; R63.4 Abnormal weight loss; R25.2 Cramp and spasm; R30.0 Dysuria
CPT/HCPCS: 36415; 73560; 80053; 80061; 81003; 82306; 82607; 82746; 83540; 83735; 84443; 85025

== ENCOUNTER → 2025-03-05 10:03 | Outpatient (BNV) | payer OTHER, SELFPAY | PROVIDERS: PCP Internal Medicine; Visit Provider Specialist | DX: M25.561 Pain in right knee (principal) | CPT/HCPCS: 73560 ==

== ENCOUNTER 2025-07-06 16:52 | Outpatient (AMB) | payer OTHER, SELFPAY ==
[2025-07-06 17:18] VITALS: BP 120/70; PULSE 88; RESP 18; O2SAT 98; BMI 31.3
--- NOTE | 2025-07-06 17:18 | A.OFFPC_ITS ---
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 Required: No Accompanied by: Self / Same As Patient Allergies pexidartinib (From Turalio) Adverse Reaction (Intermediate, Verified 07/06/25 17:39) transaminitis Medication List - Last Reconciled 07/06/25 by Phyllis Cason MD ascorbate calcium (vitamin C) 500 mg PO DAILY 90 days cholecalciferol (vitamin D3) 25 mcg PO DAILY 90 days ferrous sulfate 325 mg PO DAILY 90 days insulin syringe-needle U-100 (BD Eclipse Luer-Kiara) Use for B12 injections omeprazole 20 mg PO DAILY Tobacco use date assessed: 07/06/25 Dental Screening Dental Screen Date: 07/06/25 Did you have a dental visit in the last 12 months?: No Did you have a dental problem in the last 6 months where you did not have access to dental care?: No Was dental information given to patient?: No HPI HPI Comments History of Present Illness Details The patient is a 50-year-old female presenting for a physical exam. Her primary concern is right knee pain following a total knee replacement; she reports being unable to find an patient resource specialist for follow-up care as her medical plan is not accepted by providers. This has been an issue with providers in both [place] and [place]. Her past surgical history is significant for a right knee replacement, tubal ligation, and a tumor removal in 2020. Current medications include omeprazole, vitamin C, vitamin D, and iron. The patient has a known allergy to Turalio. A review of labs from February showed good cholesterol levels, low vitamin D which has since normalized with steroid treatment, and a normal but decreasing vitamin B12 level. In terms of preventative care, she has not completed a colon cancer screening, and the appropriate interval for Pap smears was discussed. Her mother has a history of diabetes. Mammogram will be order since it has been over a year. Cologuard will be ordered to screen for colon cancer. [facility] Medical History (Updated 07/06/25 @ 17:52 by Phyllis Cason MD) Class 1 obesity with body mass index (BMI) of 31.0 to 31.9 in adult Transaminitis Pigmented villonodular synovitis Hypovitaminosis D B12 deficiency Knee effusion, right Right knee pain Surgical History History of total right knee replacement (TKR) History of knee surgery H/O knee surgery History of tubal ligation Family History Father ALS (amyotrophic lateral sclerosis) Prostate cancer Diabetes Hypertension Mother Diabetes Arthritis Hypertension Maternal Grandmother Arthritis Diabetes Hypertension Daughter of unknown cause Social History Housing: Apartment Alcohol intake: current Alcohol intake frequency: holidays/special occasions only Alcohol type: hard liquor Patient Tobacco Use Status: Never used Tobacco e-Cigarette/Vaping Use: Never Used Second Hand Smoke Exposure: No service: No Current occupational status: employed 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 1. Little interest or pleasure in doing things: several days 2. Feeling down, depressed, or hopeless: several days 3. Trouble falling or staying asleep, or sleeping too much: not at all 4. Feeling tired or having little energy: several days 5. Poor appetite or overeating: several days 6. Feeling bad about yourself - or that you are a failure or have let yourself or your family down: not at all 7. Trouble concentrating on things, such as reading the newspaper or watching television: not at all 8. Moving or speaking so slowly that other people could have noticed. Or the opposite - being so fidgety or restless that you have been moving around a lot more than usual: not at all 9. Thoughts that you would be better off or of hurting yourself in some way: not at all Total score: 4 Depression Screening Interpretation: Positive Depression Screening Follow-up: Existing condition and Follow-up Visit Requested Depression Screening Done: Yes 75336 - PHQ-9 Billing: Yes Source: Developed by Drs. Nathen Lange, Suni Golden, Stas Hicks and colleagues, with an educational chapo from [employer]. Thrive Questionnaire Date Thrive assessed: 12/21/24 I am a: Patient What is your living situation today?: I have a steady place to live Within the past 12 months, did the food you bought not last and you didn't have the money to get more?: Sometimes True Within the past 12 months, did you worry whether your food would run out before you got money to buy more?: Sometimes True Do you have trouble paying for medicines?: No Do you have trouble getting transportation to medical appointments?: No Do you have trouble paying your heating and electricity bill?: Yes Do you have trouble taking care of your child, family member or friend?: No Do you have trouble with day-to-day activities such as bathing, preparing meals, shopping, managing finances, etc.?: No Are you currently unemployed and looking for a job?: No Are you interested in more education?: No Please select the resources that you would like help with: None Currently or been in a relationship where the following occur: I choose not to answer THRIVE Score: 3 AUDIT C Alcohol Use Questionnaire (AUDIT-C) 1. How often do you have a drink containing alcohol?: Never Total Score: 0 Score Reviewed/Action Taken: No LEANNA-7 AMB Questionnaire LEANNA-7 Date LEANNA - 7 assessed: 12/21/24 Feeling nervous, anxious, or on edge: 0 = Not at all Not being able to stop or control worryin = Not at all Worrying too much about different things: 0 = Not at all Trouble relaxin = Several days Being so restless that it is hard to sit still: 1 = Several days Becoming easily annoyed or irritable: 1 = Several days Feeling afraid as if something awful might happen: 0 = Not at all Total LEANNA-7 score (0-4 normal; 5-9 mild; 10-14 moderate; 15-21 severe): 3 Source: Developed by Drs. Nathen Lange, Suni Golden, Stas Hicks and colleagues, with an educational chapo from [employer]. LEANNA-7 Assessment Billing LEANNA-7 Assessment Tool: LEANNA-7 Assessment 01849 Review of Systems Const All systems reviewed & are unremarkable except as noted in HPI and below ENT Denies change in voice, Denies nasal discharge and Denies sinus pain Card Denies chest pain at rest, Denies chest pain with activity, Denies edema, Denies irregular heart rhythm, Denies claudication, Denies dyspnea, Denies dyspnea on exertion, Denies orthopnea, Denies paroxysmal nocturnal dyspnea and Denies slow heart rate Resp Denies cough, Denies dyspnea and Denies dyspnea on exertion GI Denies abdominal pain, Denies change in bowel habits, Denies excessive flatus, Denies nausea and Denies vomiting Denies urinary incontinence, Denies urinary hesitancy and Denies urinary urgency Musc Denies abnormal gait, Denies atrophy, Denies deformity and Denies limited range of motion Skin/Breast Denies bleeding lesions, Denies changing lesions and Denies rash Neuro Denies abnormal gait, Denies behavioral changes and Denies lack of coordination Psych Denies behavioral changes Endo Denies cold intolerance Physical exam (Primary Care) Vital Signs: Last Vital Signs Pulse 88 07/06/25 17:18 Resp 18 07/06/25 17:18 BP 120/70 07/06/25 17:18 Pulse Ox 98 07/06/25 17:18 Oxygen Delivery Method Room Air 07/06/25 17:18 BMI result Body Mass Index 31.3 Tobacco/Smoking Status: Tobacco use Status Tobacco use date assessed 07/06/25 07/06/25 17:23 Patient Tobacco Use Status Never used Tobacco 07/06/25 17:23 e-Cigarette/Vaping Use Never Used 07/06/25 17:23 PHQ-9: PHQ-9 Score PHQ-9: Total score 4 07/06/25 17:44 Depression Screening Interpretation: Positive Depression Screening Follow-up: Existing condition and Follow-up Visit Requested Thrive Assessment: Date of Thrive Assessment Date Thrive assessed 12/21/24 07/06/25 17:23 Currently or been in a relationship where the following occur: I choose not to answer HENFL Head: Yes normal to inspection, Yes normocephalic and Yes atraumatic Ears: external ears normal Eyes General: appearance normal, both eyes and all related structures Eyelids: Yes eyelids normal Conjunctivae: conjunctivae normal Neck Neck: Yes normal visual inspection and Yes supple Resp Effort & Inspection: normal respiratory effort Auscultation: clear to auscultation bilaterally Cardio Jugular venous distension: no JVD Rate: regular rate Rhythm: regular rhythm Heart sounds: S1 normal heart sound present and S2 normal heart sound present GI Inspection: Yes normal to inspection Palpation (GI): Soft to palpation and nontender Auscultation: normal bowel sounds Skin General skin exam: no rashes or lesions noted Neuro General: no focal motor deficits Extrem General: Yes full ROM Psych Appearance: grossly normal Coding Level of Care Code Est Pt Level 3 (64060) Est Pt Prev Care 40-64y(69927) Diagnoses Physical exam Z00.00 Right knee pain M25.561 Additional Codes LEANNA-7 Assessment Billing - LEANNA-7 Assessment Tool: LEANNA-7 Assessment 10665 ([id number]) PHQ-9 - 95300 - PHQ-9 Billing: Yes ([id number]) Time Spent (min) 31 Assessment & Plan Assessment & Plan (1) Physical exam: Code(s): Z00.00 - Encounter for general adult medical examination without abnormal fin dings Category: Medical (2) Right knee pain: Code(s): M25.561 - Pain in right knee Category: Medical Plan Plan 1. Physical exam Repeat in a year. Continue yearly mammograms. Last Pap smear was about 2 years ago. Cologuard ordered to screen for colon cancer. 2. Right Knee Pain The patient presents with ongoing pain in her right knee, which is status post- total knee arthroplasty. She has been unable to obtain specialty orthopedic care due to her medical insurance not being accepted. She has been advised to contact her insurance plan directly to find an in-network orthopedic provider. Orders: Orders Urine Culture Today N39.0 - Urinary tract infection, site not specified Medications: New meloxicam 15 mg PO DAILY 90 tabs 1RF 90 days
--- OUTSIDE RECORDS SUMMARY | 2025-07-07 13:31 | XMS_ITS | Clinical Summary ---
Author Organization [employer] Address [address] [place] [address] [address] [place] [address] Care Team Providers Care Dining Chair Seat Cushion Trimmer Name Role Phone Unavailable Primary Care Provider [...] (2 - Td or Tdap) 07/30/2022 07/30/2012 Pneumococcal Vaccine: 50+ Years (1 of 1 - PCV) 2025 Zoster Vaccines (1 of 2) 2025 COVID-19 Vaccine (5 - 2024- season) 2025 09/07/2022, 08/22/2021, 12/27/2020, Additional history exists Influenza Vaccine (#1) 2025 07/30/2012 RSV Patients [...]
--- OUTSIDE RECORDS SUMMARY | 2025-07-07 13:31 | XMS_ITS | Clinical Summary ---
Author Organization [facility] ity Address [address] [place] [address] Care Team Providers Care Security Sme Name Role Phone Unavailable Primary Care Provider [...] Cervical Cancer Screening: P ap Smear 01/10/1996 Depression Screening 08/19/2024 Pneumococcal Vaccine: 50+ Ye ars (1 of 1 - PCV) 2025 Zoster Vaccines (1 of 2) 2025 COVID-19 Vaccine (1 - 2024-2 6 season) 2025 Influenza Vaccine (#1) 2025 RSV Immunization Adult Patie nts (1 - 1-dose 75+ series) 2050 HIB [...]
--- OUTSIDE RECORDS SUMMARY | 2025-07-07 13:32 | XMS_ITS | Clinical Summary ---
Author Organization [facility] Address [address] [place] [address] Care Team Providers Care Multiple Spindle Screw Machine Operator Name Role Phone Luis Phyllis Cason Primary Care Provider Allergies Active Allergy Reactions Criticality Noted Date [...] drink = 0.6 oz pur e alcohol) [facility] Utilities Answer Date Recorded In [...] of 3 - 19+ 3-dose series) 1994 Pneumococcal Vaccine: 50+ Ye ars (1 of 2 - PCV) 1994 Mammogram 2015 DTaP,Tdap,and Td Vaccines (2 - Td or Tdap) 07/30/2022 07/30/2012 Alcohol/Substance Use Screening 08/19/2024 Depression Screening and Follow-Up 08/19/2024 Social Drivers of Health Vidhya ual Screening 08/19/2024 Zoster Vaccines (1 of 2) 2025 Influenza Vaccine (#1) 2025 07/30/2012 COVID-19 Vaccine (5 - 2024-2 6 season) 2025 09/07/2022, 08/22/2021, 12/27/2020, Additional history exists Diabetes Screening Discontinued 05/28/2024, 1 , 05/28/2024, Additional history exists Medical Devices Implanted Type Area Residence Leasing Agent Device Identifier Shelf Expiration Date Model / Serial / Lot Cement Tobramycin Impreganated Simplex P - [id number] Implanted:Qty: 2 on 05/27/2024 by , Alexis Monroy MD at [facility] Implant Right: Knee DORINDA 10/16/2024 [id number] / / [id number] Component Femoral Posterior Stabilized Right Cemented Narrow Size 5 Attune - [id number] Implanted:Qty: 1 on 05/27/2024 by Alexis Lewis MD at [facility] Implant Right: Knee DEPUY 02/16/2032 1504-06-09 5 / / [id number] Base Tibial Fixed Bearing Cemented Revision Size 4 Attune - [id number] Implanted:Qty: 1 on 05/27/2024 by Alexis Lewis MD at [facility] Implant Right: Knee DEPUY 02/15/2034 4 / / [id number] Patella Medialized Dome 35mm Attune - [id number] Implanted:Qty: 1 on 05/27/2024 by Alexis Lewis MD at [facility] Implant Right: Knee DEPUY 03/18/2032 5 / / [id number] Stem Femoral Cemented Revision Knee System 01aic03ar Attune - [id number] Implanted:Qty: 1 on 05/27/2024 by Alexis Lewis MD at [facility] Implant Right: Knee DEPUY 01/16/2034 0 / / [id number] Insert Tibial Fixed Bearing Posterior Stabilized Attune Size 5 8mm - [id number] Implanted:Qty: 1 on 05/27/2024 by Alexis Lewis MD at [facility] Implant Right: Knee DEPUY 01/16/2027 8 / / [id number] Procedures * Due to [place] state law, this organization might not be sharing negative HIV tests. Procedure Name Priority Date/Time Associated Diagnosis Comments BASIC METABOLIC PANEL Routine 05/28/2024 12:41 AM EDT from Last 3 Months or Most Recently Relevant to Health Maintenance Results * Due to [place] state law, this organization might not be sharing negative HIV tests. * (ABNORMAL) Basic Metabolic Panel (05/28/2024 12:41 AM EDT) NA 134(L) 135 - 145 mmol/L 05/28/2024 1:47 AM EDT [facility] K 4.7 3.5 - 5.3 mmol/L 05/28/2024 1:47 AM T [facility] Cl 102 98 - 107 mmol/L 05/28/2024 1:47 AM T [facility] CO2 20(L) 22 - 32 mmol/L 05/28/2024 1:47 AM T [facility] BUN 7 7 - 23 mg/dL 05/28/2024 1:47 AM T [facility] Creatinine 0.71 0.50 - 1.20 mg/dL 05/28/2024 1:47 AM T [facility] Glucose 149(H) 65 - 99 mg/dL 05/28/2024 1:47 AM [facility] Calcium 8.4(L) 8.6 - 10.5 mg/dL 05/28/2024 1:47 AM [facility] Anion Gap 12 5 - 15 05/28/2024 1:47 AM [facility] eGFR >90 >=60 mL/min/1. 73m2 05/28/2024 1:47 AM [facility] Comment:The estimated glomer ular filtration rate (eGFR) is calculated using a new formula developed by the NKF-ASN task force to eliminate race-based correction factors. The new formula uses serum/plasma creatinine, age, and gender to determine eGFR. A value below 60mls/min might indicate kidney disease and will be flagged. For additional information, see Glasgow et al, Am J Kidney Dis. 2021;79(2):268- 288, A Unifying Approach for GFR estimation: Recommendations of the NKF-ASN Task Force on Reassessing the Inclusion of Race in Diagnosing Kidney Disease . Blood Structure of peripheral vein / Unknown Venipuncture / Unknown 05/28/2024 12:41 AM EDT 05/28/2024 1:16 AM EDT Alexis Lewis MD LAB BLOOD ORDERABLES Final Res ult Performing Organization Address City/State/[facility] Co de Phone Number [facility] [address] [place] [address], from Last 3 Months or Most Recently Relevant to Health Maintenance Insurance [facility] HS[facility]/FREE CARE Advance Directives Documents on File Type Date Recorded Patient Paraprofessional Interpreter Expl anation Health Care Proxy 05/18/2024 8:46 AM HCP * Full Code (Latest Code Status on File) Date Activated Date Inactivated Comments 05/27/2024 12:08 PM 05/28/2024 3:52 PM * Presumed Full Code Date Activated Date Inactivated Comments 05/27/2024 6:13 AM 05/27/2024 12:08 PM Healthcare Agents on File Name Relationship Healthcare Agent Relationship Communication Memo Grover Spouse Health Care Agent Care Teams Multiple Spindle Screw Machine Operator Relationship Specialty Start Date End Date Phyllis Cintron [address] [place] [address] [place] [id number] PCP - General Internal Medicine 01/02/23
--- OUTSIDE RECORDS SUMMARY | 2025-07-07 13:32 | XMS_ITS | Encounter Summary ---
Author Organization [facility] Address [address] [place] [address] Phone Care Team Providers Care Anodizing Line Operator Name Role Phone Phyllis Cintron MD Unavailable [phone] Phyllis Cintron MD Primary Care Provid er Mark Santos MD, PhD Unavailable [phone] Encounter Details Date Type Department Care Team (Late st Contact Info) Description 07/28/2021 Procedure Pass [facility] PERIOPERATIVE DEPT [address] [place] [phone] Social History Tobacco Use Types Packs/Day Years [...] 07/28/2021 9:00 PM Ramona Lakhani RN * Vest Suicide Severity Rating Scale (Screener/Recent Self-Report) Question [...] on filedocumented in this encounter Care Teams Anodizing Line Operator Relationship Specialty Start Date End Date Phyllsi Cintron MD [address] [place] [address] PCP - General Internal Medicine 02/02/21 Phyllis Cintron MD [address] [place] [address] Internal Medicine 02/02/21 Mark Santos MD, PhD [address] [place] [id number] [email or web address] Medical Oncology 02/14/21 documented as of this encounter Additional Source Comments The information contained in this document represents components of the legal health record. It is not the complete legal health record.[facility]
--- OUTSIDE RECORDS SUMMARY | 2025-07-07 13:32 | XMS_ITS | Encounter Summary ---
Author Organization [facility] Address [address] [facility] [address] [place] [address] Phone Care Team Providers Care Operations Chief Name Role Phone Phyllis Cintron MD Unavailable + [phone] Phyllis Cintron MD Primary Care Provid er Mark Santos MD, PhD Unavailable [phone] Encounter Details Date Type Department Care Team (Late st Contact Info) Description 05/23/2021 Procedure Pass [facility] [address] [place] [phone] Social History Tobacco Use Types Packs/Day Years [...] PM EDT documented as of this encounter Plan of Treatment Not on file documented as of this encounter Visit Diagnoses Not on filedocumented in this encounter Care Teams Operations Chief Relationship Specialty Start Date End Date Phyllis Cintron MD [address] [place] [address] PCP - General Internal Medicine 02/02/21 Phyllis Cintron MD [address] [place] [address] Internal Medicine 02/02/21 Mark Santos MD, PhD [address] [place] [phone] [email or web address] Medical Oncology 02/14/21 documented as of this encounter Additional Source Comments The information contained in this document represents components of the legal health record. It is not the complete legal health record.[facility]
--- OUTSIDE RECORDS SUMMARY | 2025-07-07 13:32 | XMS_ITS | Clinical Summary ---
Author Organization [facility] Address [address] [facility] [address] [place] [phone] Phone Care Team Providers Care Data Collection Interviewer Name Role Phone Phyllis Cintron MD Unavailable [phone] Phyllis Cintron MD Primary Care Provid er Mark Santos MD, PhD Unavailable [phone] Allergies No known active allergies Medications aspirin 325 MG tablet Take 1 tablet (325 mg total) by mouth daily for 28 days. 28 tablet Active oxyCODONE 5 MG immediate release tabletIndication s:Pigmented villonodular synovitis,Post-o p pain Take 1-2 tablets (5-10 mg total) by mouth every 8 (eight) hours as needed for severe pain. 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 Not on chayo e 12/15/2022 Are you concerned about learning? Not on file 12/15/2022 No 12/15/2022 No 12/15/2022 Digital Access Answer Date Recorded No 01/12/2023 No 01/12/2023 No 01/12/2023 Reliable internet access at home? Not on file 01/12/2023 Device with a working camera? Not on file Comments No Sex and Gender Information Value Date Recorded Sex Assigned at Female 03/31/2021 10:40 AM EDT Legal Sex Female 10:43 AM EDT Gender Identity Female 03/31/2021 10:40 AM EDT Sexual Orientation Straight 04/17/2022 3: 52 PM EDT Last Filed Vital Signs Vital Sign Reading Time Taken Comments Blood Pressure 116/60 07/29/2021 8:34 AM EST Pulse 98 07/29/2021 8:34 AM EST Temperature 37.1 C (98.8 F) 07/29/2021 8:34 AM EST Respiratory Rate 18 07/29/2021 8:34 AM EST Oxygen Saturation 98% 07/29/2021 8:34 AM EST Inhaled Oxygen Concentration - - Weight 79.4 kg (175 lb) 08/24/2021 10:16 AM EST Height 157.5 cm (5' 2 ) 08/24/2021 10:16 AM EST Body Mass Index 32.01 08/24/2021 10:16 AM EST Plan of Treatment Health Maintenance Due Date Last Done Comments LIPID PANEL 1975 DEPRESSION SCREENING 1987 HEPATITIS C SCREENING 1993 HIV ONE-TIME SCREENING (18-6 5 YEARS) 1993 PAP SMEAR 01/10/1996 MAMMOGRAM 2015 COLOGUARD 01/10/2020 COLONOSCOPY 01/10/2020 COLORECTAL CANCER SCREENING 01/10/2020 FIT TEST 01/10/2020 FOBT 01/10/2020 SIGMOIDOSCOPY 01/10/2020 VIRTUAL COLONOSCOPY 01/10/2020 Adult Td,Tdap Booster 07/30/2022 07/30/2012 PNEUMOCOCCAL VACCINES (50+ years) (1 of 1 - PCV) 2025 ZOSTER VACCINES (1 of 2) 2025 INFLUENZA VACCINE (#1) 2025 07/30/2012 COVID-19 VACCINE (3 - 2024-2 6 season) 2025 12/27/2020, 11/29/2020 RSV VACCINE (1 - 1-dose 75+ series) 2050 SMOKING STATUS SCREENING (On ce After 26 Yrs) Completed 10/26/2021 HEPATITIS A VACCINES Aged Out No long er eligible based on patient's age to complete this topic HIB VACCINES Aged Out No longer eligi ble based on patient's age to complete this topic IPV VACCINES Aged Out No longer eligi ble based on patient's age to complete this topic MENINGOCOCCAL VACCINES (ACWY) Aged Out No longer eligible based on patient's age to complete this topic MENINGOCOCCAL VACCINES (B) Aged Out N o longer eligible based on patient's age to complete this topic Medical Devices Not on file Insurance [facility] NON NSPG PCP [employer]OM[employer]ER [employer]ITY CONNE[employer]CARE [employer] NON NSPG PCP SILVER [employer]ARITY CONNE[employer]CARE [employer] NON NSPG PCP SILVER CLARITY CONNECTORCARE [employer] NON NSPG PCP SILVER CLARITY CONNECTORCARE [employer] NON NSPG PCP SILVER CLARITY CONNECTORCARE [employer] NON NSPG PCP SILVER CLARITY CONNECTORCARE [employer] NON NSPG PCP SILVER CLARITY CONNECTORCARE [facility] NON NSPG PCP MEHRAN [facility] CONNECTORCARE Advance Directives For more information, please contact: [phone] (9AM - 5PM [facility], Saturday-Saturday) * Full Code (Latest Code Status on File) Date Activated Date Inactivated Comments 05/23/2021 2:27 PM Question Answer Comments Code Status Confirmed With: Patient Care Teams Data Collection Interviewer Relationship Specialty Start Date End Date Phyllis Cintron MD [address] [place] [phone] PCP - General Internal Medicine 02/02/21 Phyllis Cintron MD [address] [place] [address] Internal Medicine 02/02/21 Mark Santos MD, PhD [address] [place] [phone] [email or web address] Medical Oncology 02/14/21 Additional Source Comments The information contained in this document represents components of the legal health record. It is not the complete legal health record.[facility]
== END 2025-07-06 17:51 | disposition home or self-care (01) ==
LOC: HO.HMCH 16:53
PROVIDERS: PCP Internal Medicine; Visit Provider Internal Medicine
DX: Z00.00 Encounter for general adult medical examination without abnormal findings (principal); M25.561 Pain in right knee

== ENCOUNTER 2025-07-06 16:52 | Outpatient (REF) | payer OTHER, SELFPAY | END 2025-07-06 16:53 | disposition home or self-care (01) | LOC: HO.LAB 16:52 | PROVIDERS: PCP Internal Medicine; Visit Provider Internal Medicine | DX: Z00.00 Encounter for general adult medical examination without abnormal findings (principal); N39.0 Urinary tract infection, site not specified; M25.561 Pain in right knee; Z79.4 Long term (current) use of insulin; Z79.899 Other long term (current) drug therapy | CPT/HCPCS: 87086; 87088; 87186; 96127; 99212; 99396 ==